=== PATIENT | female | born 1985 | race Caucasian/White ===

== ENCOUNTER 2019-12-27 13:10 | Observation (INO) | payer MEDICARE, MEDICAID, SELFPAY ==
[2019-12-27 14:07] VITALS: BP 93/68; PULSE 97; RESP 14; TEMP 36.7; O2SAT 100; BMI 23.8
[2019-12-27 15:16] LABS: Basophils % 0.2 %; Eosinophils # 0.1 10^3/uL (0.0-0.8); Eosinophils % 0.6 %; Hematocrit 39.6 % (37.0-47.0); Hemoglobin 12.9 g/dL (11.5-15.3); Lymphocytes # 0.6 10^3/uL (0.8-4.8); Lymphocytes % 4.5 %; Mean Corpuscular HGB Conc 32.6 g/dL (30.0-36.0); Mean Corpuscular Hemoglobin 28.6 pg (28.0-34.0); Mean Corpuscular Volume 87.8 fL (81-99); Mean Platelet Volume 9.9 fL (7.4-10.4); Monocytes # 0.7 10^3/uL (0.2-0.9); Monocytes % 5.8 %; Neutrophils # 11.3 10^3/uL (1.8-7.7); Neutrophils % 88.7 %; Nucleated Red Blood Cells % 0 %; Platelet Count 237 10^3/cmm (130-400); Red Blood Count 4.51 10^6/uL (4.1-5.3); Red Cell Distribution Width 12.7 % (12.1-15.1); White Blood Count 12.7 10^3/uL (4.0-10.0)
[2019-12-27 15:25] LABS: Alanine Aminotransferase 12 U/L (0-33); Albumin Level 3.4 g/dL (3.5-5.2); Alkaline Phosphatase 95 IU/L (35-105); Anion Gap 17.4 (5-19); Aspartate Amino Transferase 15 U/L (0-32); Blood Urea Nitrogen 7 mg/dL (6-20); Calcium 8.5 mg/dL (8.5-10.5); Carbon Dioxide 19 mmol/L (22-29); Chloride 99 mmol/L (98-107); Globulin 2.9 g/dL (1.3-4.6); Glomerular Filtration Rate 114.4 mL/min (90-130); Glucose 112 mg/dL (65-115); Lipase 13 U/L (13-60); Osmolality Calculated 271 mOsm/kg (285-295); Potassium 3.4 mmol/L (3.5-5.1); Sodium 132 mmol/L (136-145); Total Bilirubin 0.7 mg/dL (0.15-1.2); Total Protein 6.3 g/dL (6.6-8.7)
[2019-12-27 15:45] LABS: HCG, Serum Qual Negative (Negative)
--- NOTE | 2019-12-27 17:42 | W.ED.ABDPA2 ---
HPI - Abdominal Pain General: Chief Complaint: Abdominal Pain Stated Complaint: ABDOMINAL PAIN Time Seen by Provider: 12/27/19 17:41 History of Present Illness: HPI narrative: Patient is a 34-year-old female comes to the ED with abdominal pain. Patient was seen and [facility] today and was given a shot of Toradol and sent over to the ED via ambulance for an acute abdomen work-up. Patient states that she has had abdominal pain for the past 4 days. She describes it in the lower abdomen particularly the right lower quadrant. She rates the pain an 8 out of 10. She does have some nausea and a decreased appetite but has not had any episodes of emesis. Patient says she is gotten the chills and has felt really hot and cold multiple times over the past couple days. Denies any diarrhea, constipation, blood in the stool, dysuria, hematuria, shortness of breath or chest pain. Denies upper respiratory symptoms such as cough or sore throat. Associated Symptoms: Reports chills, fever(s) and nausea; Denies constipation, diarrhea, dysuria, hematochezia, hematuria and vomiting Review of Systems Const: Reports: fever(s), chills and change in appetite (decreased); Denies: fatigue Eyes: Denies: change in vision or eye discomfort ENMT: Denies: throat pain, odynophagia, nasal discharge or nasal congestion Card: Denies: chest pain, palpitations, edema, swelling of feet/ankles, dyspnea on exertion or orthopnea Resp: Denies: dyspnea, productive cough or non-productive cough GI: Reports: abdominal pain and nausea; Denies: vomiting, diarrhea, constipation or hematochezia : Denies: flank pain, dysuria or hematuria Musc: Denies: neck pain, back pain or extremity swelling Skin/Breast: Denies: rash or new lesions Neuro: Denies: headache(s), numbness in extremities or weakness in extremities PFS ED PFSH: Medical History Glucosuria Social History Smoking and tobacco status: current every day smoker Alcohol intake: never History of recent travel: No Physical Exam Const: COMMON NORMALS: no acute distress, patient oriented x3 and alert GENERAL APPEARANCE: cooperative and comfortable HENMT: COMMON NORMALS: normocephalic HEAD & SCALP: normocephalic MOUTH: Normal oral and palatal mucosa present THROAT: posterior oropharynx normal and uvula midline Eye: COMMON NORMALS: Equal, round and reactive pupils present PUPIL: Yes Equal, round and reactive pupils present Neck/C-Spine: COMMON NORMALS: supple GENERAL: Yes normal visual inspection Resp: COMMON NORMALS: normal respiratory effort, No retractions, No use of accessory muscles and clear to auscultation bilaterally AUSCULTATION: clear to auscultation bilaterally Cardio: COMMON NORMALS: regular rate, regular rhythm, S1 normal heart sound present, S2 normal heart sound present, No gallops present (Cardio), No clicks present (Cardio), No murmurs present (Cardio) and Peripheral pulses 2+ throughout RATE: regular rate RHYTHM: regular rhythm HEART SOUNDS: S1 normal heart sound present and S2 normal heart sound present PERIPHERAL PULSES: Peripheral pulses 2+ throughout GI: COMMON NORMALS: Normal to inspection, nondistended, normoactive bowel sounds present, Soft to palpation and no masses PALPATION: Yes Soft to palpation and Yes Tenderness to palpation present (GI) Details: RLQ (mild tenderness) : COMMON NORMALS: Yes no CVA tenderness BLADDER/KIDNEY EXAM: Yes no CVA tenderness Back/Pelvis: COMMON NORMALS: no CVA tenderness Extremity: COMMON NORMALS: normal to inspection and no pedal edema Neuro: COMMON NORMALS: patient oriented x3 SENSORIUM/ORIENTATION: Yes alert GAIT: Yes Normal gait present Skin: COMMON NORMALS: no rashes or lesions noted GENERAL SKIN EXAM: no rashes or lesions noted and dry skin Course Consultations: Consultation #1: I spoke with Dr. Ortiz the on-call general surgeon about patient's case and the CT findings of appendicitis. Dr. Ortiz wanted patient to be admitted. Vital Signs: Vital signs: Vital Signs Temperature 98.1 F 12/27/19 14:07 Pulse Rate 88 12/27/19 20:00 Respiratory Rate 18 12/27/19 20:23 Blood Pressure 103/75 12/27/19 20:00 Pulse Oximetry 98 12/27/19 20:00 MDM - Abdominal Pain MDM Narrative: Medical decision making narrative: Patient is a 34-year-old female who comes to the ED with right lower quadrant abdominal pain, nausea and decreased appetite. Labs showed a white blood cell count of 12.7. CT of the abdomen pelvis showed low-grade uncomplicated appendicitis. I spoke with Dr. Ortiz the on-call surgeon about patient's case and he wanted patient to be admitted. I spoke with Dr. Briceno about patient and placing admission orders. Patient will be admitted for surgery tomorrow. Patient understood and agree with plan of care. Lab Data: Attestation: I reviewed the patient's lab results. Labs: Lab Results 12/27/19 12/27/19 12/27/19 Range/Units 15:04 15:04 15:04 WBC 12.7 H (4.0-10.0) 10^3/ uL RBC 4.51 (4.1-5.3) 10^6/u L Hgb 12.9 (11.5-15.3) g/dL Hct 39.6 (37.0-47.0) % MCV 87.8 (81-99) fL MCH 28.6 (28.0-34.0) pg MCHC 32.6 (30.0-36.0) g/dL RDW 12.7 (12.1-15.1) % Plt Count 237 (130-400) 10^3/c mm MPV 9.9 (7.4-10.4) fL Neut % (Auto) 88.7 % Lymph % (Auto) 4.5 % [place] % (Auto) 5.8 % Eos % (Auto) 0.6 % Baso % (Auto) 0.2 % Neut # (Auto) 11.3 H (1.8-7.7) 10^3/u L Lymph # (Auto) 0.6 L (0.8-4.8) 10^3/u L [place] # (Auto) 0.7 (0.2-0.9) 10^3/u L Eos # (Auto) 0.1 (0.0-0.8) 10^3/u L Baso # (Auto) 0.0 (0.0-0.1) 10^3/u L Nucleated RBC % (a uto) 0 % Nucleated RBCs # 0.0 /100WBC Sodium 132 L (136-145) mmol/L Potassium 3.4 L (3.5-5.1) mmol/L Chloride 99 (98-107) mmol/L Carbon Dioxide 19 L (22-29) mmol/L Anion Gap 17.4 (5-19) BUN 7 (6-20) mg/dL Creatinine 0.6 (0.5-0.9) mg/dL GFR Calculation 114.4 (90-130) mL/min Glucose 112 (65-115) mg/dL Calculated Osmolal ity 271 L (285-295) mOsm/k g Calcium 8.5 (8.5-10.5) mg/dL Total Bilirubin 0.7 (0.15-1.2) mg/dL AST 15 (0-32) U/L ALT 12 (0-33) U/L Alkaline Phosphata se 95 (35-105) IU/L Total Protein 6.3 L (6.6-8.7) g/dL Albumin 3.4 L (3.5-5.2) g/dL Globulin 2.9 (1.3-4.6) g/dL Lipase 13 (13-60) U/L HCG, Qual Negative (Negative) Urine Color (Yellow) Urine Appearance (CLEAR) Urine pH (5-7) Ur Specific Gravit y (1.005-1.030) Urine Protein (Negative) Urine Glucose (UA) (Normal) Urine Ketones (Negative) Urine Blood (Negative) Urine Nitrate (Negative) Urine Bilirubin (NEGATIVE) Urine Urobilinogen (Negative) mg/dL Ur Leukocyte Lorelei ase (Negative) Urine RBC (0-2) /hpf Urine WBC (0-5) /hpf Ur Squamous Epith Cells (0-5) Urine Bacteria (NONE) 12/27/19 Range/Units 17:52 WBC (4.0-10.0) 10^3/ uL RBC (4.1-5.3) 10^6/u L Hgb (11.5-15.3) g/dL Hct (37.0-47.0) % MCV (81-99) fL MCH (28.0-34.0) pg MCHC (30.0-36.0) g/dL RDW (12.1-15.1) % Plt Count (130-400) 10^3/c mm MPV (7.4-10.4) fL Neut % (Auto) % Lymph % (Auto) % [place] % (Auto) % Eos % (Auto) % Baso % (Auto) % Neut # (Auto) (1.8-7.7) 10^3/u L Lymph # (Auto) (0.8-4.8) 10^3/u L [place] # (Auto) (0.2-0.9) 10^3/u L Eos # (Auto) (0.0-0.8) 10^3/u L Baso # (Auto) (0.0-0.1) 10^3/u L Nucleated RBC % (a uto) % Nucleated RBCs # /100WBC Sodium (136-145) mmol/L Potassium (3.5-5.1) mmol/L Chloride (98-107) mmol/L Carbon Dioxide (22-29) mmol/L Anion Gap (5-19) BUN (6-20) mg/dL Creatinine (0.5-0.9) mg/dL GFR Calculation (90-130) mL/min Glucose (65-115) mg/dL Calculated Osmolal ity (285-295) mOsm/k g Calcium (8.5-10.5) mg/dL Total Bilirubin (0.15-1.2) mg/dL AST (0-32) U/L ALT (0-33) U/L Alkaline Phosphata se (35-105) IU/L Total Protein (6.6-8.7) g/dL Albumin (3.5-5.2) g/dL Globulin (1.3-4.6) g/dL Lipase (13-60) U/L HCG, Qual (Negative) Urine Color Yellow (Yellow) Urine Appearance Sl cloudy A (CLEAR) Urine pH 5 (5-7) Ur Specific Gravit y 1.020 (1.005-1.030) Urine Protein Neg (Negative) Urine Glucose (UA) Norm (Normal) Urine Ketones Negative (Negative) Urine Blood 3+ H (Negative) Urine Nitrate Negative (Negative) Urine Bilirubin 1+ H (NEGATIVE) Urine Urobilinogen 8 H (Negative) mg/dL Ur Leukocyte Lorelei ase Negative (Negative) Urine RBC 0-4 H (0-2) /hpf Urine WBC 0-4 H (0-5) /hpf Ur Squamous Epith Cells 25-40 H (0-5) Urine Bacteria 1+ H (NONE) Imaging Data ^: CT Abd/Pel: Attestation: I personally reviewed and interpreted this imaging study as follows: Radiologist's impression: [address] [place] [address] CT Scan Report Signed Patient: Qing Helm Unit #: [id number] : [id number] Age/Sex: 34 / F ADM Date: 12/27/19 Loc: ER Room/Bed: Attending Dr: Ordering Provider/Ordering MD: Roger Matthews Date of Service: 12/27/19 Procedure(s): CT abdomen pelvis w con* [id number] Accession Number(s): [id number] Report Number: [id number] PROCEDURE INFORMATION: Exam: CT Abdomen And Pelvis With Contrast Exam date and time: 12/27/2019 7:39 PM Age: 34 years old Clinical indication: Abdominal pain; Generalized; Patient HX: C/O abd pain and nausea; Additional info: Abdominal pain, nausea TECHNIQUE: Imaging protocol: Computed tomography of the abdomen and pelvis with intravenous contrast. Radiation optimization: All CT scans at this facility use at least one of these dose optimization techniques: automated exposure control; mA and/or kV adjustment per patient size (includes targeted exams where dose is matched to clinical indication); or iterative reconstruction. Contrast material: OMNI 300; Contrast volume: 95 ml; Contrast route: 20G; COMPARISON: No relevant prior studies available. RADIATION DOSE METRICS: Total DLP: 508.72 mGy-cm FINDINGS: Liver: Unremarkable. No mass. Gallbladder and bile ducts: Normal. No calcified stones. No ductal dilation. Pancreas: Normal. No ductal dilation. Spleen: Normal. No splenomegaly. Adrenals: Normal. No mass. Kidneys and ureters: Normal. No hydronephrosis. Stomach and bowel: Nonobstructive bowel pattern. Mild associated small bowel reactive ileus. Appendix: Findings suggest the presence of low-grade acute uncomplicated appendicitis. No periappendiceal abscess or extraluminal gas. Intraperitoneal space: Unremarkable. No free air. No significant fluid collection. Vasculature: The abdominal aorta is nonaneurysmal. Minimal arterial sclerotic disease. Lymph nodes: Unremarkable. No enlarged lymph nodes. Bladder: Unremarkable as visualized. Reproductive: Unremarkable as visualized. Bones/joints: No visible active osseous pathology. Soft tissues: Unremarkable. CT/CT abdomen pelvis w con* [id number] IMPRESSION: Findings consistent with low-grade uncomplicated appendicitis. 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
[2019-12-27] MEDS: sodium chloride 0.9% 1,000 ML 999 ML IV (18:02)
[2019-12-27] MEDS: ondansetron 2 mg/ML SDV 2 mL 4 MG IVP (18:02)
[2019-12-27 18:04] VITALS: BP 108/63; PULSE 98; O2SAT 99
[2019-12-27 18:55] LABS: Add Urine Microscopic? YES; Bilirubin Urine 1+ (NEGATIVE); Blood Urine 3+ (Negative); Glucose Urine UA Norm (Normal); Ketones Urine Negative (Negative); Leukocyte Esterase Urine Negative (Negative); Nitrate Urine Negative (Negative); Protein Urine Neg (Negative); Urine Color Yellow (Yellow); Urobilinogen Urine 8 mg/dL (Negative); pH Urine 5 (5-7)
[2019-12-27 18:56] LABS: Bacteria Urine 1+; RBC Urine 0-4 /hpf (0-2); Squamous Epithelial Cell Urine 25-40 (0-5); WBC Urine 0-4 /hpf (0-5)
[2019-12-27 18:57] LABS: Add Urine Culture? No
[2019-12-27] MEDS: iohexol 300 mg/mL 100 mL Btl IV (19:45)
[2019-12-27 20:00] VITALS: BP 103/75; PULSE 88; RESP 16; O2SAT 98
[2019-12-27 20:23] VITALS: RESP 18
[2019-12-27] MEDS: morphine 4 mg/mL SDV 1 mL IVP (20:23)
[2019-12-27 20:54] VITALS: BP 94/58; PULSE 80; RESP 18; TEMP 37.2; O2SAT 98
[2019-12-27] MEDS: acetaminophen 500 mg Tablet PO (21:31)
[2019-12-27] MEDS: piperacillin-tazobactam 3.375 GM in sodium chloride 0.9% (plus) 50 ML IV (21:32)
--- NOTE | 2019-12-27 21:46 | PC.NURSE ---
Called report to Radha
[2019-12-27 22:17] VITALS: BP 101/57; PULSE 87; RESP 16; O2SAT 98
[2019-12-27] MEDS: sodium chloride 0.9% 1,000 ML 100 ML IV (22:43)
[2019-12-28] VITALS (16 sets, daily range): BP systolic 91–133; BP diastolic 53–85; PULSE 73–113; RESP 12–20; TEMP 36.9–37.4; O2SAT 95–99
[2019-12-28 02:53] LABS: Basophils % 0.3 %; Eosinophils # 0.1 10^3/uL (0.0-0.8); Eosinophils % 1.5 %; Hematocrit 36.2 % (37.0-47.0); Hemoglobin 11.5 g/dL (11.5-15.3); Lymphocytes # 0.8 10^3/uL (0.8-4.8); Mean Corpuscular HGB Conc 31.8 g/dL (30.0-36.0); Mean Corpuscular Hemoglobin 28.6 pg (28.0-34.0); Mean Platelet Volume 10.7 fL (7.4-10.4); Monocytes # 0.8 10^3/uL (0.2-0.9); Monocytes % 10.6 %; Neutrophils # 6.1 10^3/uL (1.8-7.7); Neutrophils % 77.2 %; Nucleated Red Blood Cells % 0 %; Platelet Count 189 10^3/cmm (130-400); Red Blood Count 4.02 10^6/uL (4.1-5.3); Red Cell Distribution Width 12.9 % (12.1-15.1); White Blood Count 7.9 10^3/uL (4.0-10.0)
[2019-12-28 03:02] LABS: Anion Gap 15.4 (5-19); Blood Urea Nitrogen 7 mg/dL (6-20); Calcium 8.2 mg/dL (8.5-10.5); Carbon Dioxide 22 mmol/L (22-29); Chloride 106 mmol/L (98-107); Glomerular Filtration Rate 114.4 mL/min (90-130); Glucose 77 mg/dL (65-115); Osmolality Calculated 285 mOsm/kg (285-295); Potassium 3.4 mmol/L (3.5-5.1); Sodium 140 mmol/L (136-145)
[2019-12-28] MEDS: morphine 4 mg/mL SDV 1 mL IVP (04:54)
--- NOTE | 2019-12-28 06:32 | PC.NURSE ---
Pt. off floor at this time to OR.
--- NOTE | 2019-12-28 06:53 | P.HP_ITS ---
Providers/Chief Complaint Admitting Physician: Nicola Ortiz MD Chief Complaint: ABDOMINAL PAIN History of Present Illness Qing Helm is a 34 year old female who presented to the ER last night with worsening lower abdominal pain. Patient states that the pain said about 5 days ago has been constant, no associated aggravating or relieving factors. Patient denies any fevers chills nausea vomiting constipation or diarrhea. No similar episodes in the past. No history of inflammatory bowel disease. Review of Systems General: Reports: 10 or more systems reviewed and unremarkable except in HPI and below Medications/Allergies Home Medications Medication Instructions Recorded Confirmed Last Taken Type ibuprofen 800 mg PO PRN 12/27/19 12/27/19 12/27/19 History Allergies Allergy/AdvReac Type Severity Reaction Status Date / Time No Known Allergies Allergy Verified 12/27/19 11:24 PFSH Acute PFSH: Medical History Glucosuria Surgical History (Updated 12/28/19 @ 07:00 by Nicola Ortiz MD) No pertinent past surgical history Social History Smoking and tobacco status: current every day smoker Alcohol intake: never History of recent travel: No Vitals/I&O/Wt Last Vital Signs Temp 98.5 F 12/28/19 06:45 Pulse 79 12/28/19 06:45 Resp 16 12/28/19 06:45 BP 102/69 12/28/19 06:45 Pulse Ox 97 12/28/19 06:45 12/27/19 12/27/19 12/28/19 14:59 22:59 06:59 Output Total 200 / 200 Balance -200 / -200 Weight last 48 hrs Weight 126 lb Physical Exam Narrative: EXAM NARRATIVE: HEENT: Normocephalic Eye: Sclera /conjunctiva normal Respiratory and chest: Bilateral clear breath sounds on auscultation Cardiovascular: Normal S1 and S2 heart sounds Abdomen: Soft to palpation, tender right lower quadrant, no guarding or rigidity Neurological: Oriented to place person and time Skin: Intact, no lesions appreciated on gross exam Data : 12/28/19 02:24 12/28/19 02:24 A&P Assessment and plan (1) Acute appendicitis: 34-year-old female with right lower quadrant pain leukocytosis and CT scan showing early appendicitis. Plan for laparoscopic possible open appendectomy. Procedure, risks, benefits and alternatives have been discussed with the patient who wishes to proceed with surgery. 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
--- NOTE | 2019-12-28 07:06 | ANES.PREANE2 ---
Pre-Anesthetic Assessment Pre-Anesthetic Assessment: Height/Weight: Height 1.55 m Weight 57.153 kg Temp Pulse Resp BP Pulse Ox 98.5 F 79 16 102/69 97 12/28/19 06:45 12/28/19 06:45 12/28/19 06:45 12/28/19 06:45 12/28/19 06:45 Preop Diagnosis: Acute appendicitis Proposed Procedure: Operation Date: 12/28/19 07:20 Proposed Procedures p Laparoscopic Appendectomy(Not Applicable) - Nicola Ortiz MD Was Beta Angelic taken within 24 hours: N/A Last intake: Intake Last Liquid Date 12/27/19 Last Liquid Time 19:00 Last Solid Date 12/26/19 Last Solid Time 17:00 Social: Social History: No alcohol and No tobacco Exam: Pre-Anes Outpt Exam: alert, oriented x 3, clear to auscultation bilaterally and regular rate & rhythm Airway: Submandibular: WNL Cervical ROM: WNL MP: 2 Dentition: Other Additional comments: Profound dental disease throughout with terminal decay and periodontal disease History/ROS: No significant history except as noted Pulmonary: Pulmonary: None reported CV/HEM: CV/HEM: None reported Hepatic: Hepatic: None reported GI: GI: None reported Metabolic: Metabolic: None reported Musc/skel: Musc/skel: None reported Neuropsych: Neuropsych: None reported Anesthetic Plan: ASA status: 1E Anesthesia: General Meds/Allergies Current Medications: Current Medications Generic Name Dose Route Start Last Admin Trade Name Freq PRN Reason Stop Dose Admin Sodium Chloride 1,000 mls @ 100 m ls/hr 12/27/19 21:00 12/27/19 22:43 Sodium Chloride 0.9% IV 100 mls/hr .Q10H JULIO Administration Morphine Sulfate 4 mg 12/27/19 20:54 12/28/19 04:54 Morphine IVP 4 mg Q4H PRN Administration SEVERE PAIN PFSH Anesthesia PFSH: Medical History (Updated 12/28/19 @ 07:00 by Nicola Ortiz MD) Glucosuria Surgical History (Updated 12/28/19 @ 07:00 by Nicola Ortiz MD) No pertinent past surgical history Social History Smoking and tobacco status: current every day smoker Alcohol intake: never History of recent travel: No Data Anesthesia CBC & Chem 7: 12/28/19 02:24 12/28/19 02:24 Other Labs: Laboratory Results - last 48 hr 12/27/19 12/27/19 12/27/19 15:04 15:04 15:04 WBC 12.7 H RBC 4.51 Hgb 12.9 Hct 39.6 MCV 87.8 MCH 28.6 MCHC 32.6 RDW 12.7 Plt Count 237 MPV 9.9 Neut % (Auto) 88.7 Lymph % (Auto) 4.5 [place] % (Auto) 5.8 Eos % (Auto) 0.6 Baso % (Auto) 0.2 Neut # (Auto) 11.3 H Lymph # (Auto) 0.6 L [place] # (Auto) 0.7 Eos # (Auto) 0.1 Baso # (Auto) 0.0 Nucleated RBC % (auto) 0 Nucleated RBCs # 0.0 Sodium 132 L Potassium 3.4 L Chloride 99 Carbon Dioxide 19 L Anion Gap 17.4 BUN 7 Creatinine 0.6 GFR Calculation 114.4 Glucose 112 Calculated Osmolality 271 L Calcium 8.5 Total Bilirubin 0.7 AST 15 ALT 12 Alkaline Phosphatase 95 Total Protein 6.3 L Albumin 3.4 L Globulin 2.9 Lipase 13 HCG, Qual Negative Urine Color Urine Appearance Urine pH Ur Specific [place] Urine Protein Urine Glucose (UA) Urine Ketones Urine Blood Urine Nitrate Urine Bilirubin Urine Urobilinogen Ur Leukocyte Esterase Urine RBC Urine WBC Ur Squamous Epith Cells Urine Bacteria 12/27/19 12/28/19 12/28/19 17:52 02:24 02:24 WBC 7.9 RBC 4.02 L Hgb 11.5 Hct 36.2 L MCV 90.0 MCH 28.6 MCHC 31.8 RDW 12.9 Plt Count 189 MPV 10.7 H Neut % (Auto) 77.2 Lymph % (Auto) 10.0 [place] % (Auto) 10.6 Eos % (Auto) 1.5 Baso % (Auto) 0.3 Neut # (Auto) 6.1 Lymph # (Auto) 0.8 [place] # (Auto) 0.8 Eos # (Auto) 0.1 Baso # (Auto) 0.0 Nucleated RBC % (auto) 0 Nucleated RBCs # 0.0 Sodium 140 Potassium 3.4 L Chloride 106 Carbon Dioxide 22 Anion Gap 15.4 BUN 7 Creatinine 0.6 GFR Calculation 114.4 Glucose 77 Calculated Osmolality 285 Calcium 8.2 L Total Bilirubin AST ALT Alkaline Phosphatase Total Protein Albumin Globulin Lipase HCG, Qual Urine Color Yellow Urine Appearance Sl cloudy A Urine pH 5 Ur Specific [place] 1.020 Urine Protein Neg Urine Glucose (UA) Norm Urine Ketones Negative Urine Blood 3+ H Urine Nitrate Negative Urine Bilirubin 1+ H Urine Urobilinogen 8 H Ur Leukocyte Esterase Negative Urine RBC 0-4 H Urine WBC 0-4 H Ur Squamous Epith Cells 25-40 H Urine Bacteria 1+ H Cardiac Studies: No Data to Display
[2019-12-28] MEDS: sodium chloride 0.9% 1,000 ML 30 ML IV (07:10)
[2019-12-28] MEDS: piperacillin-tazobactam 3.375 GM in sodium chloride 0.9% (plus) 50 ML IV (07:14)
--- NOTE | 2019-12-28 09:00 | PM.OP ---
Operative Report Date of procedure: December 28, 2019 Pre-op Diagnosis: Acute appendicitis Post-op diagnosis: same Procedure Done: Laparoscopic appendectomy Specimens removed/disposition: Appendix Surgeon: Nicola Ortiz Anesthesia: General Estimated blood loss (mL): 10 Condition: stable Disposition: PACU Procedure: The patient was taken to the Operating Room and intubated under general anesthesia after antibiotic had been administered. Using a 15 blade, a 1-cm infraumbilical incision was made and using open Klarissa technique, the peritoneal cavity was entered. A 12mm port with balloon was placed and 14 mm of pneumoperitoneum was created and 10-mm 30 degree scope was introduced. Two separate 5mm ports were placed in the left and right lower quadrant under direct visualization. The appendix was noted in the right lower quadrant and appeared acutely inflamed with suppuration.. Using [place] forceps, an opening was made in the mesoappendix near the base of the appendix. An Endo JAM stapler 45mm long 3.5mm blue load was introduced to divide the appendix at it's base. Using electrocautery, the mesoappendix including the appendicular artery was divided. There was no bleeding noted and the staple line appeared intact. The right lower quadrant was irrigated with saline and an EndoCatch bag was introduced to remove the appendix. All three ports were removed under direct visualization and there was no bleeding noted on the port sites. 10 cc of 0.5% Marcaine was infiltrated at the port sites. The fascia at the umbilical port was closed using figure of eight 0-Vicryl sutures and subcutaneous tissue was approximated using 3-0 Vicryl and skin at all 3 port sites was closed using 4-0 Monocryl and Dermabond.
--- NOTE | 2019-12-28 09:02 | PM.DCS ---
Discharge Providers Date of Admission: 12/27/19 20:56 Date of Discharge: December 28, 2019 Attending Provider at Admission: Nicola Ortiz MD Attending Provider at Discharge: Nicola Ortiz MD Diagnoses at Discharge Discharge Diagnosis (1) Acute appendicitis: Status: Resolved Reason for Visit Reason for Visit: ABDOMINAL PAIN Hospital Course Hospital Course: This is a 34-year-old female who presented to the ER with lower abdominal pain, CT scan showed acute appendicitis. Patient underwent laparoscopic appendectomy. At time of discharge her vital signs are stable and she was tolerating a clear liquid diet. Discharge Data Data Completed and Pending: Completed Studies During Hospitalization Category Date Time Status CT abdomen pelvis w con* [id number] Urge nt Cat Scan 12/27/19 17:41 Completed Pending at discharge Category Date Time Status Pathology: Surgic al [PTH] Routine Pth 12/28/19 07:47 Ordered Labs from last 24 hours 12/28/19 12/28/19 12/27/19 02:24 02:24 17:52 WBC 7.9 RBC 4.02 L Hgb 11.5 Hct 36.2 L MCV 90.0 MCH 28.6 MCHC 31.8 RDW 12.9 Plt Count 189 MPV 10.7 H Neut % (Auto) 77.2 Lymph % (Auto) 10.0 [place] % (Auto) 10.6 Eos % (Auto) 1.5 Baso % (Auto) 0.3 Neut # (Auto) 6.1 Lymph # (Auto) 0.8 [place] # (Auto) 0.8 Eos # (Auto) 0.1 Baso # (Auto) 0.0 Nucleated RBC % (a uto) 0 Nucleated RBCs # 0.0 Sodium 140 Potassium 3.4 L Chloride 106 Carbon Dioxide 22 Anion Gap 15.4 BUN 7 Creatinine 0.6 GFR Calculation 114.4 Glucose 77 Calculated Osmolal ity 285 Calcium 8.2 L Total Bilirubin AST ALT Alkaline Phosphata se Total Protein Albumin Globulin Lipase HCG, Qual Urine Color Yellow Urine Appearance Sl cloudy A Urine pH 5 Ur Specific Gravit y 1.020 Urine Protein Neg Urine Glucose (UA) Norm Urine Ketones Negative Urine Blood 3+ H Urine Nitrate Negative Urine Bilirubin 1+ H Urine Urobilinogen 8 H Ur Leukocyte Lorelei ase Negative Urine RBC 0-4 H Urine WBC 0-4 H Ur Squamous Epith Cells 25-40 H Urine Bacteria 1+ H 12/27/19 12/27/1912/26/20 15:04 15:04 15:04 WBC 12.7 H RBC 4.51 Hgb 12.9 Hct 39.6 MCV 87.8 MCH 28.6 MCHC 32.6 RDW 12.7 Plt Count 237 MPV 9.9 Neut % (Auto) 88.7 Lymph % (Auto) 4.5 [place] % (Auto) 5.8 Eos % (Auto) 0.6 Baso % (Auto) 0.2 Neut # (Auto) 11.3 H Lymph # (Auto) 0.6 L [place] # (Auto) 0.7 Eos # (Auto) 0.1 Baso # (Auto) 0.0 Nucleated RBC % (a uto) 0 Nucleated RBCs # 0.0 Sodium 132 L Potassium 3.4 L Chloride 99 Carbon Dioxide 19 L Anion Gap 17.4 BUN 7 Creatinine 0.6 GFR Calculation 114.4 Glucose 112 Calculated Osmolal ity 271 L Calcium 8.5 Total Bilirubin 0.7 AST 15 ALT 12 Alkaline Phosphata se 95 Total Protein 6.3 L Albumin 3.4 L Globulin 2.9 Lipase 13 HCG, Qual Negative Urine Color Urine Appearance Urine pH Ur Specific Gravit y Urine Protein Urine Glucose (UA) Urine Ketones Urine Blood Urine Nitrate Urine Bilirubin Urine Urobilinogen Ur Leukocyte Lorelei ase Urine RBC Urine WBC Ur Squamous Epith Cells Urine Bacteria Vitals: Last Vital Signs Temp 98.8 F 12/28/19 08:25 Pulse 92 12/28/19 08:25 Resp 16 12/28/19 08:25 BP 127/65 12/28/19 08:25 Pulse Ox 96 12/28/19 08:25 Discharge Plan Discharge Patient Disposition: Home, Self-Care Condition: Stable Prescriptions: [place] 5-325 mg tablet 1 tab PO Q6H 7 Days Qty: 20 RF: 0 docusate sodium [Colace] 100 mg capsule 100 mg PO BID Qty: 30 RF: 0 ondansetron HCl [Zofran] 4 mg tablet 4 mg PO Q6H PRN (Reason: nausea and vomiting) Qty: 20 RF: 0 Continued ibuprofen 200 mg Tablet 800 mg PO PRN RF: 0 Discharge Orders: Discharge Order (Routine); Ordered 12/28/19 Ordered By: Nicola Ortiz Referrals: Nicola Ortiz MD [Physician] - 2 weeks Discharge Diet: Advance as tolerated Activity Restrictions/Additional Instructions: 1. Up and walking as tolerated. 2. Ok to shower in 48 hours after surgery. 3. Remove Dermabond dressing in 7-10 days. 4. Do not lift more than 10 pounds. 5. Do not operate heavy machinery or drive while using pain medications. 6. Advised to return to ER or contact my office if there are any signs of infection like, increasing pain, fevers, chills, redness or drainage of pus. 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
--- NOTE | 2019-12-28 09:45 | PC.CHAP ---
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 [] Patient/Family/Request visit [] Outpatient visit [] Follow-up visit [] Physician referral [] Code/Alert [x] Routine visit [] Staff referral [] Actively dying [] Patient sleeping [] Family support [] [] Out of room [] Palliative care [] [] Receiving care in room [] Pre-surgical visit [] Trauma [] Long length of stay [] ICU visit [] Other: Relational/Emotional Strength [] Patient feels connected with others/family/visitors/staff [] Distress [] Loneliness/isolation [] Abandonment Spirituality of Patient [] Person of Valerie [] Attends Baptism of their Valerie [] Believes in Prayer [] Reads Bible or Judaism materials [] There are Spiritual issues to be addressed Salesperson Handbags Interventions [x] Prayer [] Active listening [] Non-anxious presence [] Spiritual/emotional support [] Crisis/trauma care [] Spiritual counseling [] Bereavement support [] Provided bereavement packet [] Provided Bible/devotional materials [] Provided toy/stuffed animal, coloring book to patient or family member [] Provided Communion [] Anointing/[place] [] Salvation [x] Completed spiritual assessment [] Other: Impact on Illness or Injury [] Angry [] Fearful [] Anxious [] Often cries [] Exhaustion [] Unable to work [] Unable to attend bahai [] Unable to walk/stand [] Unable to read [] Unable to drive [] Unable to eat/drink [] Unable to sleep [] Unable to be with family [] Patient intubated [] Other: Summary Patient resting well. Time spent with patient 5 min
[2019-12-28] MEDS: lactated ringers 1,000 ML 100 ML IV (09:52)
[2019-12-28] MEDS: HYDROcodone-acetaminophen 5-325 mg Tablet 1 TAB PO (10:53)
--- NOTE | 2019-12-28 11:51 | PC.RESP ---
Smoking Cessation information and a schedule of classes sent to patient.
== END 2019-12-28 14:43 | disposition home or self-care (01) ==
LOC: ER 17:41 → MEDSURG 21:32
PROVIDERS: Family Medicine; Physician Assistant; Admitting Provider Surgery; Emergency Provider Physician Assistant; Visit Provider Surgery
PROC: 0DTJ4ZZ Resection of Appendix, Percutaneous Endoscopic Approach (ICD-10-PCS; CPT 44970; principal; 2019-12-28 07:00)
DX: K35.80 Unspecified acute appendicitis (principal); F17.210 Nicotine dependence, cigarettes, uncomplicated
CPT/HCPCS: 44970; 12345; 36415; 74177; 80048; 80053; 81000; 81001; 81025; 83690; 84703; 85025; 88304; 96365; 96375; 96376; 99282; 99285; G0378; J2270; J2405; J2543; J2704; J3010; J3490; J7030; Q9967

== ENCOUNTER 2022-09-27 11:02 | Emergency (ER) | payer MEDICARE, MEDICAID, SELFPAY ==
[2022-09-27 11:04] VITALS: BP 105/75; PULSE 75; RESP 14; TEMP 36.6; O2SAT 100
--- NOTE | 2022-09-27 11:30 | XR_ITS ---
WS: [id number] XR chest 1V portable [id number] REASON FOR EXAM: cough FINDINGS: The heart and the mediastinum are within normal limits. There is calcified granulomatous disease bilaterally. There is no active pulmonary parenchymal or pleural disease. The bony thorax is unremarkable. The chest is unchanged compared to 01/14/2019. XR/XR chest 1V portable [id number] IMPRESSION: No acute chest abnormality.
--- NOTE | 2022-09-27 11:43 | W.ED.URI ---
HPI - URI/Sore Throat General: Chief Complaint: Upper Respiratory Infection Stated Complaint: cough,congestion, body aches Time Seen by Provider: 09/27/22 11:30 History of Present Illness: Patient is a 36-year-old female who comes to the ED with upper respiratory symptoms. She is complaining of having headache, nasal congestion and drainage, sore throat, fevers, cough chills and body aches. Symptoms started approximately 2 days ago. Associated symptoms: Reports chills, fever(s) and nasal congestion; Deny abdominal pain, chest pain, diarrhea, headache(s), nausea or vomiting Review of Systems Const: Reports: fever(s), chills, body aches and fatigue Eyes: Denies: change in vision or eye discomfort ENMT: Reports: throat pain, nasal discharge and nasal congestion; Denies: odynophagia Card: Denies: chest pain, palpitations, edema, swelling of feet/ankles, dyspnea on exertion or orthopnea Resp: Reports: non-productive cough; Denies: dyspnea or productive cough GI: Denies: abdominal pain, nausea, vomiting, diarrhea, constipation or hematochezia : Denies: flank pain, dysuria or hematuria Musc: Denies: neck pain, back pain or extremity swelling Skin/Breast: Denies: rash or new lesions Neuro: Denies: headache(s), numbness in extremities or weakness in extremities PFS ED PFSH: Medical History Glucosuria Surgical History No pertinent past surgical history Social History Smoking and tobacco status: never smoked Alcohol intake: never Female Reproductive History: Spontaneous abortions: No Physical Exam Const: COMMON NORMALS: no acute distress, patient oriented x3, healthy appearing and alert GENERAL APPEARANCE: cooperative and comfortable HENMT: COMMON NORMALS: normocephalic HEAD & SCALP: normocephalic MOUTH: Normal oral and palatal mucosa present THROAT: posterior oropharynx normal and uvula midline Neck/C-Spine: COMMON NORMALS: supple GENERAL: Yes normal visual inspection Resp: COMMON NORMALS: normal respiratory effort, No retractions, No use of accessory muscles and clear to auscultation bilaterally AUSCULTATION: clear to auscultation bilaterally Cardio: COMMON NORMALS: regular rate, regular rhythm, S1 normal heart sound present, S2 normal heart sound present, No gallops present (Cardio), No clicks present (Cardio), No murmurs present (Cardio) and Peripheral pulses 2+ throughout RATE: regular rate RHYTHM: regular rhythm HEART SOUNDS: S1 normal heart sound present and S2 normal heart sound present PERIPHERAL PULSES: Peripheral pulses 2+ throughout GI: COMMON NORMALS: Normal to inspection, nondistended, normoactive bowel sounds present, Soft to palpation, non-tender and no masses PALPATION: Yes Soft to palpation : COMMON NORMALS: Yes no CVA tenderness BLADDER/KIDNEY EXAM: Yes no CVA tenderness Back/Pelvis: COMMON NORMALS: no CVA tenderness Extremity: COMMON NORMALS: normal to inspection Neuro: COMMON NORMALS: patient oriented x3 SENSORIUM/ORIENTATION: Yes alert GAIT: Yes Normal gait present Skin: GENERAL SKIN EXAM: dry skin Course Vital Signs: Vital signs: Vital Signs Temperature 97.8 F 09/27/22 11:04 Pulse Rate 79 09/27/22 12:47 Respiratory Rate 14 09/27/22 12:47 Blood Pressure 105/75 09/27/22 11:04 Pulse Oximetry 100 09/27/22 12:47 Oxygen Delivery Me thod 09/27/22 11:04 MDM - URI/Sore Throat Medical Decision Making Patient is a 36-year-old female who comes to the ED with upper respiratory symptoms. She is complaining of having headache, nasal congestion and drainage, sore throat, fevers, cough chills and body aches. Symptoms started approximately 2 days ago. Vital stable. Patient appears nontoxic and in no acute distress or pain. Rest of exam is benign. Chest x-ray shows no acute findings. Influenza, COVID and strep were all negative. Patient was diagnosed with a viral URI with a cough and was stable for discharge home. She was told to follow-up with her PCP in the next week for reevaluation. Return to ED precautions given. Patient understood and agreed with plan. Lab Data I reviewed the patient's lab results. Radiology Impressions Chest X-Ray 09/27/22 11:30 IMPRESSION: No acute chest abnormality. Laboratory Results Influenza Type A Ag Negative (Negative) 09/27/22 11:40 Influenza Type B Ag Negative (Negative) 09/27/22 11:40 SARS-CoV-2 Ag (Rapid) negative (Negative) 09/27/22 11:40 Group A Strep Rapid Negative (Negative) 09/27/22 11:45 Discharge Plan Discharge Patient Disposition: Home Clinical Impression: Viral URI with cough Condition: Stable Prescriptions: New ondansetron 4 mg tablet,disintegrating 4 mg PO Q8H PRN (Reason: nausea and vomiting) Qty: 20 0RF prednisone 20 mg tablet 20 mg PO BID 3 Days Qty: 6 0RF No Action albuterol sulfate 90 mcg/actuation HFA aerosol inhaler 2 puff inhalation QID Qty: 8.5 0RF Rx Instructions: 2 puffs inhaled every 4-6 hours as needed benzonatate 100 mg capsule 100 mg PO TID PRN (Reason: cough) Qty: 15 0RF Discharge Orders: Discharge ED (Routine); Ordered 09/27/22 Ordered By: Roger Matthews Discharge Diet: Regular Discharge Activity: Increase activity as tolerated Patient Instructions: Upper Respiratory Infection (ED) Activity Restrictions/Additional Instructions: Follow-up with medical provider as directed in the next 5 to 7 days for reevaluation. Take [id number] Tylenol or ibuprofen for any fevers. Drink plenty of fluids and stay hydrated. Take medications as prescribed. Return to the ER or your medical provider if condition worsens. Please read and understand discharge instructions. Thank you for choosing [facility] for your healthcare needs today. Please realize this is an emergency room and that we are providing you with a medical screening exam and this may not be complete and all inclusive of all the testing and or work up that you may need to determine your ailment or severity of your illness. It is very important that you follow up as instructed or that you return to the Emergency Department should you have concerns or if your condition changes or worsens in any way. Coding Level of Care Code ED Manager Massage Department for Albert Pelletier
[2022-09-27 12:03] LABS: Rapid Strep A Test Negative (Negative)
[2022-09-27 12:09] LABS: SARS Covid-2 Antigen negative (Negative)
[2022-09-27 12:28] LABS: Influenza A by IFA Negative (Negative); Influenza B by IFA Negative (Negative)
[2022-09-27] MEDS: acetaminophen 500 mg Tablet 1000 MG PO (12:42)
[2022-09-27] MEDS: ondansetron 2 mg/ML SDV 2 mL 4 MG IM (12:42)
[2022-09-27 12:47] VITALS: PULSE 79; RESP 14; O2SAT 100
--- NOTE | 2022-09-28 16:43 | DCPLANNER ---
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
== END 2022-09-27 12:47 | disposition home or self-care (01) ==
PROVIDERS: Emergency Provider Physician Assistant
DX: J06.9 Acute upper respiratory infection, unspecified (principal)
CPT/HCPCS: 71045; 87081; 87426; 87804; 87880; 96372; 99284; J2405

== ENCOUNTER 2022-10-06 09:35 | Inpatient (IN) | payer MEDICARE, MEDICAID, SELFPAY ==
[2022-10-06 09:42] VITALS: BP 163/111; PULSE 84; RESP 16; TEMP 36.4; O2SAT 97; BMI 27.3
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
[2022-10-06 10:24] LABS: Alanine Aminotransferase 16 U/L (0-33); Albumin Level 3.7 g/dL (3.5-5.2); Alkaline Phosphatase 84 U/L (35-105); Aspartate Amino Transferase 13 U/L (0-32); Blood Urea Nitrogen 16 mg/dL (6-20); Calcium 8.5 mg/dL (8.5-10.5); Carbon Dioxide 20 mmol/L (22-29); Chloride 107 mmol/L (98-107); Globulin 2.7 g/dL (1.3-4.6); Glomerular Filtration Rate 94.7 mL/min (90-130); Glucose 65 mg/dL (65-115); Osmolality Calculated 285 mOsm/kg (285-295); Sodium 138 mmol/L (136-145); Total Bilirubin 0.2 mg/dL (0.15-1.2); Total Protein 6.4 g/dL (6.6-8.7)
[2022-10-06 10:26] LABS: Acetaminophen < 5.0 ug/mL (10-30); Anion Gap 14.9 (5-19); Potassium 3.9 mmol/L (3.5-5.1); Salicylate < 0.3 mg/dL (3-10)
[2022-10-06 10:29] LABS: Basophils # 0.1 10^3/uL (0.0-0.1); Basophils % 0.2 %; Eosinophils # 0.2 10^3/uL (0.0-0.8); Eosinophils % 1.1 %; Hematocrit 42.9 % (37.0-47.0); Hemoglobin 13.5 g/dL (11.5-15.3); Lymphocytes # 4.5 10^3/uL (0.8-4.8); Lymphocytes % 22.4 %; Mean Corpuscular HGB Conc 31.5 g/dL (30.0-36.0); Mean Corpuscular Hemoglobin 28.5 pg (28.0-34.0); Mean Corpuscular Volume 90.5 fl (81-99); Mean Platelet Volume 9.1 fL (7.4-10.4); Monocytes # 2.4 10^3/uL (0.2-0.9); Monocytes % 11.8 %; Neutrophils % 58.9 %; Nucleated Red Blood Cells % 0 %; Platelet Count 505 10^3/cmm (130-400); Red Blood Count 4.74 10^6/uL (4.1-5.3); Red Cell Distribution Width 13.3 % (12.1-15.1)
[2022-10-06 10:30] LABS: Slide Review Slide Review Perform
--- NOTE | 2022-10-06 10:30 | PC.PHAR ---
pt is from [facility] [phone] katy nurse at [facility] states the pt finished the zpac filled 09/30/22 5d/s and medrol dose [place] filled 09/30/22 7d/s this am-pts med list sent by [facility] has the pt takes mirtazapine 30mg hs filled 09/23/22 30d/s per katy states the pt takes mirtazapine 45mg hs filled 09/29/22 30d/s-notes are made in the pharmacy comments
[2022-10-06 10:44] LABS: Add Urine Microscopic? NO; Charge for UA Resulting for Rev
[2022-10-06 10:57] LABS: Bilirubin Urine Neg (Negative); Blood Urine Neg (Negative); Glucose Urine UA Norm (Normal); Ketones Urine Negative (Negative); Leukocyte Esterase Urine Negative (Negative); Nitrate Urine Negative (Negative); Protein Urine Neg (Negative); Urine Appearance Clear (CLEAR); Urine Color Yellow (Yellow); Urobilinogen Urine Neg (Negative); pH Urine 6 (5-7)
--- NOTE | 2022-10-06 11:18 | XRR_ITS ---
PROCEDURE INFORMATION: Exam: XR Chest Exam date and time: 10/06/2022 11:33 AM Age: 36 years old Clinical indication: Cough and dyspnea; Additional info: Dyspnea/cough TECHNIQUE: Imaging protocol: Radiologic exam of the chest. Views: 1 view. COMPARISON: CR XR chest 1V [id number] 01/14/2019 8:58 AM FINDINGS: Lungs: Unremarkable. No consolidation. Pleural spaces: Unremarkable. No pleural effusion. No pneumothorax. Heart/Mediastinum: Unremarkable. No cardiomegaly. Bones/joints: Unremarkable. XR/XR chest 1V portable [id number] IMPRESSION: No acute findings.
[2022-10-06 14:55] LABS: HCG Qualitative Urine. Negative (Negative)
[2022-10-06 16:14] VITALS: BP 113/78; PULSE 73; RESP 18; TEMP 36.7; O2SAT 97
[2022-10-06 18:51] VITALS: PULSE 82; RESP 18; O2SAT 100
[2022-10-06] MEDS: albuterol 2.5 mg/3 mL Neb INHALATION (18:51)
[2022-10-06 18:54] VITALS: PULSE 77
[2022-10-06 21:25] VITALS: BP 124/73; PULSE 90; RESP 18; TEMP 36.8; O2SAT 96
[2022-10-06] MEDS: mirtazapine 30 mg Tablet PO (21:53)
[2022-10-06] MEDS: OLANZapine 10 mg TABLET PO (21:54)
[2022-10-07 06:00] VITALS: BP 105/66; PULSE 65; RESP 16; TEMP 37.2; O2SAT 98
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
[2022-10-07] MEDS: buPROPion XL (24 HR) 300 mg Tablet PO (09:19)
[2022-10-07] MEDS: acetaminophen 325 mg Tablet 650 MG PO ×2 (09:19→21:25)
[2022-10-07 14:00] VITALS: BP 127/66; PULSE 88; RESP 18; TEMP 36.9; O2SAT 97
[2022-10-07] MEDS: propranolol 20 mg Tablet PO (21:25)
[2022-10-07] MEDS: OLANZapine 10 mg TABLET PO (21:25)
[2022-10-07] MEDS: mirtazapine 30 mg Tablet PO (21:25)
[2022-10-07] MEDS: trazodone 50 mg Tablet PO (21:25)
[2022-10-07 21:29] VITALS: BP 101/64; PULSE 96; RESP 17; TEMP 36.6; O2SAT 97
[2022-10-08] MEDS: buPROPion XL (24 HR) 300 mg Tablet PO (08:58)
[2022-10-08] MEDS: acetaminophen 325 mg Tablet 650 MG PO ×2 (09:02→21:39)
--- NOTE | 2022-10-08 10:00 | PC.NURSE ---
Pt up and about; attended group; voicing no complaints.
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
[2022-10-08 14:00] VITALS: BP 112/79; PULSE 86; RESP 16; TEMP 36.7; O2SAT 95
[2022-10-08] MEDS: docusate sodium 100 mg Capsule PO (15:02)
[2022-10-08] MEDS: OLANZapine 5 mg ODT PO (17:08)
[2022-10-08] MEDS: hyDROXYzine 25 mg Capsule 50 MG PO (18:22)
[2022-10-08 18:37] VITALS: PULSE 85; RESP 16; O2SAT 98
[2022-10-08] MEDS: albuterol 2.5 mg/3 mL Neb INHALATION (18:37)
[2022-10-08 19:50] VITALS: BP 104/52; PULSE 96; RESP 18; TEMP 36.8; O2SAT 97
[2022-10-08] MEDS: OLANZapine 10 mg TABLET PO (21:38)
[2022-10-08] MEDS: mirtazapine 30 mg Tablet PO (21:38)
[2022-10-08] MEDS: propranolol 20 mg Tablet PO (21:39)
[2022-10-09 06:00] VITALS: BP 112/67; PULSE 64; RESP 16; TEMP 36.8; O2SAT 96
[2022-10-09] MEDS: buPROPion XL (24 HR) 300 mg Tablet PO (09:46)
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
[2022-10-09] MEDS: OLANZapine 5 mg ODT PO (13:41)
[2022-10-09 14:00] VITALS: BP 120/74; PULSE 72; RESP 16; TEMP 36.9; O2SAT 96
[2022-10-09] MEDS: hyDROXYzine 25 mg Capsule 50 MG PO ×2 (16:02→21:18)
[2022-10-09 20:01] VITALS: BP 127/91; PULSE 96; RESP 16; TEMP 37.1; O2SAT 96
[2022-10-09] MEDS: mirtazapine 30 mg Tablet PO (21:17)
[2022-10-09] MEDS: propranolol 20 mg Tablet PO (21:17)
[2022-10-09] MEDS: OLANZapine 10 mg TABLET PO (21:17)
[2022-10-09] MEDS: magnesium hydroxide 30 mL UDC 15 ML PO (21:18)
[2022-10-10 06:00] VITALS: BP 120/71; PULSE 74; RESP 16; TEMP 36.9; O2SAT 96
[2022-10-10] MEDS: buPROPion XL (24 HR) 300 mg Tablet PO (08:21)
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
[2022-10-10 14:00] VITALS: BP 108/66; PULSE 88; RESP 18; TEMP 36.8; O2SAT 98
[2022-10-10] MEDS: hyDROXYzine 25 mg Capsule 50 MG PO (17:16)
--- NOTE | 2022-10-10 17:17 | PC.NURSE ---
PRN VISTARIL 50 MG GIVEN PO PER PT C/O STATED ANXIETY
[2022-10-10] MEDS: OLANZapine 10 mg TABLET PO (20:29)
[2022-10-10] MEDS: mirtazapine 30 mg Tablet PO (20:29)
[2022-10-10 21:42] VITALS: BP 117/78; PULSE 88; RESP 18; TEMP 36.8; O2SAT 98
[2022-10-10] MEDS: propranolol 20 mg Tablet PO (23:22)
[2022-10-10] MEDS: trazodone 50 mg Tablet PO (23:22)
[2022-10-11] MEDS: acetaminophen 325 mg Tablet 650 MG PO (03:36)
[2022-10-11] MEDS: hyDROXYzine 25 mg Capsule 50 MG PO (03:37)
[2022-10-11 06:00] VITALS: BP 103/67; PULSE 66; RESP 17; TEMP 36.8; O2SAT 98
[2022-10-11] MEDS: buPROPion XL (24 HR) 300 mg Tablet PO (07:44)
[2022-10-11 09:36] VITALS: BP 103/67; PULSE 66; RESP 17; TEMP 36.8; O2SAT 98
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
--- NOTE | 2022-10-11 11:53 | PC.NURSE ---
discharge instructions discussed and left with patient. no questions asked pt stated understanding and compliance. waiting for ride from [facility] for departure.
== END 2022-10-11 12:19 | disposition home or self-care (01) | DRG 881 ==
LOC: ER 10:15 → NP 14:34
PROVIDERS: Admitting Provider Psychiatry & Neurology Psychiatry; Emergency Provider Family Medicine; Visit Provider Psychiatry & Neurology Psychiatry
DX: F32.A Depression, unspecified (principal); R45.851 Suicidal ideations; F15.21 Other stimulant dependence, in remission; F43.10 Post-traumatic stress disorder, unspecified
CPT/HCPCS: 36415; 71045; 80053; 80307; 81003; 81025; 85025; 94640; 97150; 97165; 99238; 99285; J7613

== ENCOUNTER → 2023-01-04 13:33 | Outpatient (BNVA) | payer OTHER, MEDICAID, SELFPAY | PROVIDERS: Visit Provider Nurse Practitioner | DX: Z79.899 Other long term (current) drug therapy (principal) | CPT/HCPCS: 80061; 83036 ==

== ENCOUNTER 2023-01-06 12:32 | Outpatient (CLI) | payer OTHER, MEDICAID, SELFPAY ==
--- NOTE | 2023-01-06 12:38 | USR_ITS ---
PROCEDURE INFORMATION: Exam: US Duplex Left Lower Extremity Arteries Or Arterial Bypass Grafts Exam date and time: 01/06/2023 1:04 PM Age: 37 years old Clinical indication: Pain; Leg, lower; Left; Additional info: Pain in left lower leg TECHNIQUE: Imaging protocol: Left Real-time duplex scan of the arteries or arterial bypass grafts of the left lower extremity with 2-D carrasco scale, color Doppler flow and spectral waveform analysis. Images documented and saved. COMPARISON: CT abdomen pelvis w con* [id number] 12/27/2019 7:36 PM FINDINGS: Left common femoral artery: No occlusion or significant stenosis. Normal waveform. Left superficial femoral artery: No occlusion or significant stenosis. Normal waveform. Left popliteal artery: No occlusion or significant stenosis. Normal waveform. Left calf/foot arteries: No occlusion or significant stenosis in the visualized arteries. Normal waveforms. Dorsalis pedis artery is patent. US/CV arterial duplex [facility] [id number] IMPRESSION: No stenosis or occlusion.
== END 2023-01-06 12:33 | disposition home or self-care (01) ==
PROVIDERS: PCP Nurse Practitioner Family; Visit Provider Nurse Practitioner Family
DX: M79.662 Pain in left lower leg (principal)
CPT/HCPCS: 93926

== ENCOUNTER 2023-06-07 13:19 | Inpatient (IN) | payer MEDICARE, MEDICAID, SELFPAY ==
[2023-06-07 13:34] VITALS: BP 136/90; PULSE 86; TEMP 36.2; O2SAT 95; BMI 36.1
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
[2023-06-07 14:28] LABS: Basophils # 0.1 10^3/uL (0.0-0.1); Basophils % 0.9 %; Eosinophils # 0.2 10^3/uL (0.0-0.8); Eosinophils % 1.8 %; Hematocrit 44.5 % (36-47); Lymphocytes # 2.7 10^3/uL (0.8-4.8); Lymphocytes % 27.3 %; Mean Corpuscular HGB Conc 32.1 g/dL (30-55); Mean Corpuscular Hemoglobin 28.1 pg (27-33); Mean Corpuscular Volume 87.6 fl (85-98); Mean Platelet Volume 9.3 fL (7.4-10.4); Monocytes # 0.6 10^3/uL (0.2-0.9); Neutrophils # 6.33 10^3/uL (1.8-7.7); Neutrophils % 63.5 %; Nucleated Red Blood Cells % 0 %; Platelet Count 385 10^3/cmm (157-399); Red Blood Count 5.08 10^6/uL (3.85-5.65); Red Cell Distribution Width 13.2 % (12.1-15.1); White Blood Count 9.97 10^3/uL (3.29-11.43)
[2023-06-07 14:53] LABS: Alanine Aminotransferase 15 U/L (0-33); Alkaline Phosphatase 116 U/L (35-105); Anion Gap 16.9 (5-19); Aspartate Amino Transferase 14 U/L (0-32); Blood Urea Nitrogen 9 mg/dL (6-20); Carbon Dioxide 18 mmol/L (22-29); Chloride 109 mmol/L (98-107); Globulin 2.7 g/dL (1.3-4.6); Glomerular Filtration Rate 94.2 mL/min (90-130); Glucose 132 mg/dL (65-115); Osmolality Calculated 291 mOsm/kg (285-295); Potassium 3.9 mmol/L (3.5-5.1); Sodium 140 mmol/L (136-145); Total Bilirubin 0.2 mg/dL (0.15-1.2); Total Protein 6.7 g/dL (6.6-8.7)
[2023-06-07 14:54] LABS: Acetaminophen < 5.0 ug/mL (10-30); Alcohol Level < 10 mg/dL (0-10); Salicylate < 0.3 mg/dL (3-10)
[2023-06-07 14:56] LABS: Amphetamines Screen Urine Negative (Negative); Barbiturates Screen Urine Negative (Negative); Benzodiazepines Screen Urine Negative (Negative); Cocaine Screen Urine Negative (Negative); Opiate Screen Urine Negative (Negative); PCP Screen Urine Negative (Negative); THC Screen Urine Negative (Negative)
[2023-06-07 15:34] LABS: HCG, Serum Qual Negative (Negative)
[2023-06-07 16:45] VITALS: BP 122/65; PULSE 81; RESP 16; TEMP 36.6; O2SAT 94
[2023-06-07 17:30] VITALS: BP 138/92; PULSE 88; RESP 18; TEMP 36.8; O2SAT 97
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
[2023-06-07 20:40] VITALS: BP 100/67; PULSE 93; RESP 16; TEMP 37; O2SAT 96
[2023-06-07] MEDS: BuSPIRONE 10 mg Tablet PO (20:44)
[2023-06-07] MEDS: metformin 500 mg Tablet PO (20:44)
[2023-06-07] MEDS: trazodone 50 mg Tablet PO (20:44)
[2023-06-07] MEDS: atorvastatin 40 mg Tablet PO (20:45)
[2023-06-07 20:51] LABS: Glucose Point of Care 112 mg/dL (70-110)
[2023-06-08] MEDS: trazodone 50 mg Tablet PO ×2 (01:05→20:35)
[2023-06-08 06:00] VITALS: BP 94/61; PULSE 74; RESP 16; O2SAT 97
[2023-06-08] MEDS: buPROPion XL (24 HR) 300 mg Tablet PO (09:37)
[2023-06-08] MEDS: duloxetine 30 mg Capsule PO (09:37)
[2023-06-08] MEDS: BuSPIRONE 10 mg Tablet PO ×3 (09:37→20:35)
[2023-06-08] MEDS: pantoprazole DR 40 mg Tablet PO (09:37)
[2023-06-08] MEDS: naltrexone hcl 50 mg Tablet PO (09:37)
[2023-06-08] MEDS: quetiapine 100 mg Tablet 200 MG PO (09:37)
[2023-06-08 14:00] VITALS: BP 108/72; PULSE 76; RESP 16; TEMP 36.8; O2SAT 95
--- NOTE | 2023-06-08 15:41 | P.NPUHP_ITS ---
Providers/Chief Complaint Admitting Physician: Capo Gamble MD Primary Care Provider: Nika Lozano DNP Chief Complaint: SI HPI NPU History of Present Illness Qing Helm is a 37 year old female who presented to the emergency department with complaints of suicidal ideation for the past 4 days. She was admitted to the neuropsychiatric unit for further evaluation and treatment. She has a history of depression, mild cognitive impairment, along with methamphetamine dependence and reports worsening depression over the past few weeks. Patient jaeger d previously been admitted to the neuropsychiatric unit in September 2022 after she had attempted to drown herself in her bathtub. The patient had endorsed that she had been clean off of any illicit substances for the past 10 months. She reports that after her last hospitalization here she had gone for further treatment at the [facility]. The patient reported that after her completing her 30-day treatment there, she had been transition to a residential center in [facility]. She states that she is near the end of her time there and she reports that she has had increased anxiety about potentially being homeless and on the street again. She reports a lack of social support. She does report some feelings of guilt and reports frequently struggling with sadness. She reports increased financial stressors and states that she has been struggling with keeping or obtaining a job. Patient had endorsed that she has not had any cravings for methamphetamine. She denied any current psychotic symptoms. She denied any recent self-injurious behavior. She does report having more frequent crying spells recently. She reports struggles with sleep continuity disruption. She does report having difficulties with concentration and does endorse anhedonia over the last month despite being compliant with her current medication regimen. She endorses having chronic struggles with maint aining control of her worry. She often reports having tension and reports that her worry often makes her irritable and affects her ability to fall asleep as she spends time at night often not being able to manage her worries which leads to some insomnia as well. Inpatient psychiatric history: She reports multiple inpatient hospitalizations in the past with her last hospitalization having occurred 8 months ago here at the neuropsychiatric unit. She has a history of suicidal ideation and past hi story of suicide attempt via overdose and by drowning. Outpatient psychiatric history: She currently receives services through [facility] under JESUS Arrington for medication management. She also reports receiving psychotherapy services through [facility] for her addiction. Drug and alcohol history: She has extended history of methamphetamine use lasting for several years with her longest period of sobriety being currently at about 10 months. She had reported that she had been in rehabilitation faci lities before in the past. Current psychiatric medications: Wellbutrin XL 300 mg daily, naltrexone 50 mg daily, Cymbalta 30 mg daily, hydroxyzine 50 mg 3 times a day, trazodone 50 mg at night, Seroquel 25 mg twice a day, Seroquel 200 mg at night Legal History: She reports some continued charges for delivery of narcotics Medical history: Glucosuria Surgical history: Appendectomy Developmental history: History of a learning disorder and intellectual disability Family psychiatric history: None reported Social history: She reported having graduated from special education classes. She states she was raised by her biological parents who are both as her mother in 2012 and her father in 2017. She reports that she has not been working. She had previously been residing in [place] with her boyfriend prior to entering into the [facility] program. She is currently residing in a residential center in [place]. She had reported early onset use of methamphetamine as an adolescent. She reports not having many social supports. [facility] Evaluation from 01/04/23 shown below. [facility] History and Physical Time In: 12:00 Time Out: 13:00 Chief Complaint: Depression and anxiety History of Present Illness: [facility].? She was hospitalized September 2022 after an attempted suicide attempt by drowning in the bathtub.? She states she is currently in [facility] outpatient rehab program.? She is also living in a residential treatment in [place].? Qing describes her mood as depressed.? She states this is increased during the daytime.? She states she cries easily.? Feels upset.? Does not want to talk to anybody.? She has continued intermittent suicidal thoughts.? Thoughts are to drown herself in the bathtub.? She tells me she does not have a bathtub where she lives currently.? Denies auditory hallucinations but does verbalize visual hallucinations.? When I asked her to describe this she states I do not know .? No thoughts of harming others.? She initially tells me she sleeps from 8 PM to 6 AM.? She describes her sleep is poor.? States she does wake up to use the bathroom and not always is she able to go back to bed.? Reports anxiety.? States she worries about drug court.? Has been told this is placed on hold until she is able to get into [facility].? She has been sober from methamphetamines for 4 months now.? She denies any cravings for that today.? She does reference being locked up and not able to do things she enjoys such as swimming and kayaking. History Past Psychiatric History: Qing tells me she has been hospitalized 4-5 different times in psychiatric units for suicidal thoughts.? Her last hospitalization was October 07.? She states this was after she attempted to drown herself in a bathtub.? She has been seen at [facility] off-and-on on an outpatient basis but not on a regular basis.? Last she saw family in 2016.? Diagnosis at that time included depression and methamphetamine use.? Her current medications include Seroquel 50 mg at bedtime, trazodone 50 mg at bedtime, hydroxyzine 50 mg up to 3 times daily as needed for anxiety, olanzapine 10 mg at bedtime, Remeron 45 mg at bedtime, propranolol 20 mg 3 times a day, and Wellbutrin XL 300 mg daily. She tells me she has been on these medications for at least a couple months but could be as long as 4 months. Family History: Qing tells me her father was not able to read.? She states her sister has a history of drug use. Past Medical History: She is unable to verbalize her current primary care provider.? She states her physical health is good.? Reports prior surgeries including having her appendix out.? Tells me she thinks she takes medication for cholesterol and also is on the Depo-Provera injection.? States she is not able to have kids because her uterus is too small. Substance Use History: Qing denies nicotine use.? States she has taken a puff but has never been a regular smoker. ? Qing denies current marijuana use.? States she last used 5 years ago.? States she did not like marijuana and it was never her drug of choice.? She states when she did use it she did not use it for very long. ? Qing denies alcohol use.? She states alcohol is not her thing.? She estimates last drinking alcohol around the age of 21. ? Qing reports methamphetamine as her drug of choice.? She states she last used August 24, 2022.? She states she used via all routes including IV.? She states she has used methamphetamine 15 to 16 years. ? Qing denies other drug use including opiate pain medication, cocaine, heroin, anxiety medications ? Qing has been to rehab 3-4 different times.? She has [facility] [place] in [facility].? States she attends the outpatient program for 8 hours a day Tuesday through .? She has been in the outpatient program for about 1 month.? Prior to this she completed 90 days in the inpatient program. Social History: Qing states she is currently living in a residential treatment in [place].? She has lived there for 1.5 months.? She states she is single and has no children.? She has been on disability all of her adult life.? She states the reason she is on disability is mental retardation .? She states she did graduate high school but she is not able to read or write.? 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 She tells me she is currently in drug court but also states that is on hold.? She states she has been to assisted 4-5 different times for drugs.? She is on probation for at least the next 5 years because of drugs.? Denies a history of physical, emotional, sexual abuse.? Her family includes 1 sister who does not speak to her because of her drug use and another sister who was a previous drug user but has not used in 5 years.? States her mom and dad are both . Meds NPU Home Medications Medication Instructions Recorded Confirmed Last Taken Type albuterol sulfate 90 mcg/actuation 1 - 2 puff inhalation Q6H PRN 10/11/22 06/07/23 Unknown Rx aerosol inhaler (ProAir HFA) Shortness Of Breath 30 days #2.5 grams propranolol 20 mg tablet 20 mg PO TID PRN Blood Pressure 30 10/11/22 06/07/23 Unknown Rx days #90 tabs bupropion HCl 300 mg 24 hr tablet, 300 mg PO DAILY 30 days #30 tabs 05/02/23 06/07/23 06/07/23 Rx extended release buspirone 10 mg tablet 10 mg PO TID #90 tabs 05/02/23 06/07/23 06/07/23 Rx duloxetine 30 mg capsule,delayed 30 mg PO DAILY #30 caps 05/02/23 06/07/23 06/07/23 Rx release (Cymbalta) hydroxyzine pamoate 50 mg capsule 50 mg PO TID PRN Anxiety 30 days 05/02/23 06/07/23 Unknown Rx #90 caps naltrexone 50 mg tablet 50 mg PO DAILY #30 tabs 05/02/23 06/07/23 06/07/23 Rx quetiapine 200 mg tablet 200 mg PO DAILY #30 tabs 05/02/23 06/07/23 06/07/23 Rx quetiapine 25 mg tablet 25 mg PO BID PRN withdrawal 05/02/23 06/07/23 Unknown Rx symptoms 30 days #60 tabs trazodone 50 mg tablet 50 mg PO BEDTIME PRN Sleep 30 days 05/02/23 06/07/23 Unknown Rx #30 tabs atorvastatin 10 mg tablet 10 mg PO BEDTIME 06/07/23 06/07/23 06/06/23 History baclofen 10 mg PO TID PRN Anxiety 06/07/23 06/07/23 Unknown History ergocalciferol (vitamin D2) 1,250 1,250 mcg PO Q7D 06/07/23 06/07/23 06/06/23 History mcg (50,000 unit) capsule linaclotide 290 mcg capsule 290 mcg PO DAILY 06/07/23 06/07/23 06/07/23 History (Linzess) liraglutide 0.6 mg/0.1 mL (18 mg/3 1.2 mg SUBCUT DAILY 06/07/23 06/07/23 1 08/07/22 History mL) subcutaneous pen injector (smsPREPtoza 2-Paul) medroxyprogesterone 150 mg/mL 150 mg IM Q90D 06/07/23 06/07/23 Unknown History intramuscular syringe metformin 500 mg tablet 500 mg PO BEDTIME 06/07/23 06/07/23 06/06/23 History omeprazole 20 mg capsule,delayed 20 mg PO DAILY 06/07/23 06/07/23 06/07/23 History release ondansetron 8 mg PO TID PRN Nausea 06/07/23 06/07/23 Unknown History Allergies Allergy/AdvReac Type Severity Reaction Status Date / Time No Known Allergies Allergy Verified 06/07/23 13:39 PFSH NPU PFSH: Medical History GILDARDO (generalized anxiety disorder) Glucosuria Intellectual disability Major depressive disorder, recurrent, moderate Methamphetamine use disorder, moderate, in early remission, dependence Psychiatric care Surgical History No pertinent past surgical history Social History Smoking and tobacco/nicotine status: never used tobacco/nicotine Alcohol intake: never Substance/Drug Use: current Substance/Drug use frequency: daily Female Reproductive History: Spontaneous abortions: No Mental Status Exam MSE Comments: The patient is a casually dressed white female who appeared in mild to moderate distress. She was lying in bed and was compliant on interview. There was no evidence of any abnormal involuntary motor movements tics or tremors appreciated. There was clear evidence of moderate psychomotor retardation. Her mood was described as depressed. Her affect was mood congruent and restricted in range. Her thought process was linear and logical. She endorsed suicidal ideation but no active plan. She minimized any homicidal ideation. She did not appear to be responding internal stimuli. There was no clear evidence of delusional thinking. Her attention span appeared poor. Her insight and judgment were impaired. Her impulse control appeared impaired as well. Her intelligence appeared commensurate with mild cognitive impairment. Vitals/I&O/Wt Last Vital Signs Temp 98.2 F 06/08/23 14:00 Pulse 76 06/08/23 14:00 Resp 16 06/08/23 14:00 BP 108/72 06/08/23 14:00 Pulse Ox 95 06/08/23 14:00 O2 Del Method Room Air 06/08/23 14:00 Weight last 48 hrs Weight 86.636 kg Data NPU 06/07/23 14:16 06/07/23 14:16 A&P Assessment and plan (1) Suicidal ideation: (2) MDD (major depressive disorder), recurrent episode: (3) GILDARDO (generalized anxiety disorder): (4) Methamphetamine use disorder, moderate, in early remission, dependence: Plan 37-year-old single white female with mild cognitive impairment, methamphetamine dependence and depression admitted with suicidal ideation in the context of increased stressors. Patient would likely benefit from an adjustment in her medications. 1. Encourage individual, group and milieu therapy. 2. Recommend sober living treatment at the highest level of care to which the patient is willing to commit. 3. Continue q-15 minute checks for safety.? 4.? Restart current medications. 5.? Will attempt to gather collateral information. Involuntary Hold Information 96 Hour Hold: 96 Hour Involuntary Admission: No Attestations NPU Medical Necessity Statement*: Inpatient hospitalization is medically necessary and the clinically appropriate decision at this time. We will monitor and initiate medications as indicated. The patient will be hospitalized for at least two midnights. Her likely length of stay of 2-4 days. Coding Level of Care Code Acute Code for [facility] Fwd Diagnoses Suicidal ideation R45.851 MDD (major depressive disorder), recurrent episode F33.9 GILDARDO (generalized anxiety disorder) F41.1 Methamphetamine use disorder, moderate, in early remission, dependence F15.21
[2023-06-08 20:33] VITALS: BP 92/51; PULSE 75; RESP 18; TEMP 36.8; O2SAT 94
[2023-06-08] MEDS: atorvastatin 40 mg Tablet PO (20:35)
[2023-06-08] MEDS: metformin 500 mg Tablet PO (20:35)
[2023-06-09 06:00] VITALS: BP 116/67; PULSE 83; RESP 15; TEMP 36.9; O2SAT 97
[2023-06-09] MEDS: baclofen 10 mg Tablet PO (07:29)
[2023-06-09] MEDS: duloxetine 30 mg Capsule PO (07:29)
[2023-06-09] MEDS: BuSPIRONE 10 mg Tablet PO (07:29)
[2023-06-09] MEDS: quetiapine 100 mg Tablet 200 MG PO (07:29)
[2023-06-09] MEDS: buPROPion XL (24 HR) 300 mg Tablet PO (07:30)
[2023-06-09] MEDS: naltrexone hcl 50 mg Tablet PO (07:30)
[2023-06-09] MEDS: pantoprazole DR 40 mg Tablet PO (07:30)
[2023-06-09 08:59] VITALS: BP 116/67; PULSE 83; RESP 15; TEMP 36.9; O2SAT 97
--- NOTE | 2023-06-09 10:21 | PC.NURSE ---
CONTACT JULIANNE BISHOP CAN BE REACHED AT [facility] @ [phone]
--- NOTE | 2023-06-09 10:41 | W.PM.NPUDCS ---
Diagnoses at Discharge Discharge Diagnosis (1) Suicidal ideation: Status: Resolved (2) MDD (major depressive disorder), recurrent episode: Status: Acute (3) GILDARDO (generalized anxiety disorder): Status: Acute (4) Methamphetamine use disorder, moderate, in early remission, dependence: Status: Resolved Reason for Visit Reason for Visit: SI Brief History: History of Present Illness Qing Helm is a 37 year old female who presented to the emergency department with complaints of suicidal ideation for the past 4 days. She was admitted to the neuropsychiatric unit for further evaluation and treatment. She has a history of depression, mild cognitive impairment, along with methamphetamine dependence and reports worsening depression over the past few weeks. Patient had previously been admitted to the neuropsychiatric unit in September 2022 after she had attempted to drown herself in her bathtub. The patient had endorsed that she had been clean off of any illicit substances for the past 10 months. She reports that after her last hospitalization here she had gone for further treatment at the [facility]. The patient reported that after her completing her 30-day treatment there, she had been transition to a residential center in [facility]. She states that she is near the end of her time there and she reports that she has had increased anxiety about potentially being homeless and on the street again. She reports a lack of social support. She does report some feelings of guilt and reports frequently struggling with sadness. She reports increased financial stressors and states that she has been struggling with keeping or obtaining a job. Patient had endorsed that she has not had any cravings for methamphetamine. She denied any current psychotic symptoms. She denied any recent self-injurious behavior. She does report having more frequent crying spells recently. She reports struggles with sleep continuity disruption. She does report having difficulties with concentration and does endorse anhedonia over the last month despite being compliant with her current medication regimen. She endorses having chronic struggles with maintaining control of her worry. She often reports having tension and reports that her worry often makes her irritable and affects her ability to fall asleep as she spends time at night often not being able to manage her worries which leads to some insomnia as well. Inpatient psychiatric history: She reports multiple inpatient hospitalizations in the past with her last hospitalization having occurred 8 months ago here at the neuropsychiatric unit. She has a history of suicidal ideation and past history of suicide attempt via overdose and by drowning. Outpatient psychiatric history: She currently receives services through [facility] under JESUS Arrington for medication management. She also reports receiving psychotherapy services through [facility] for her addiction. Drug and alcohol history: She has extended history of methamphetamine use lasting for several years with her longest period of sobriety being currently at about 10 months. She had reported that she had been in rehabilitation facilities before in the past. Current psychiatric medications: Wellbutrin XL 300 mg daily, naltrexone 50 mg daily, Cymbalta 30 mg daily, hydroxyzine 50 mg 3 times a day, trazodone 50 mg at night, Seroquel 25 mg twice a day, Seroquel 200 mg at night Legal History: She reports some continued charges for delivery of narcotics Medical history: Glucosuria Surgical history: Appendectomy Developmental history: History of a learning disorder and intellectual disability Family psychiatric history: None reported Social history: She reported having graduated from special education classes. She states she was raised by her biological parents who are both as her mother in 2012 and her father in 2018. She reports that she has not been working. She had previously been residing in [place] with her boyfriend prior to entering into the [facility] program. She is currently residing in a residential center in [place]. She had reported early onset use of methamphetamine as an adolescent. She reports not having many social supports. Hospital Course Hospital Course She had significant improvement and was able to contract for safety, outside the hospital prior to discharge. During the hospitalization, patient had routine laboratory studies which were within normal limits except for few outliers. Additionally there was a general medical evaluation which was also within normal limits and revealed no new acute processes. At the time of discharge, he denied psychosis or lethality. Mood and anxiety were well managed. Patient endorsed a plan to avoid all drugs of abuse and follow-up with the aftercare recommendations of the treatment team. Patient was evaluated and deemed to be absent credible lethality, and had achieved the maximum benefit from an inpatient hospitalization, so was discharged. Involuntary Hold Information 96 Hour Hold: 96 Hour Involuntary Admission: No Mental Status Exam MSE Comments: The patient is a casually dressed white female who appeared in mild to moderate distress. She was lying in bed and was compliant on interview. There was no evidence of any abnormal involuntary motor movements tics or tremors appreciated. There was clear evidence of moderate psychomotor retardation. Her mood was described as better.. Her affect was less restricted on discharge. Her thought process was linear and logical. She endorsed no suicidal ideation and no active plan. She minimized any homicidal ideation. She did not appear to be responding internal stimuli. There was no clear evidence of delusional thinking. Her attention span appeared fair. Her insight and judgment were adequate on discharge. Her mpulse control appeared at baseline at discharge. Her intelligence appeared commensurate with mild cognitive impairment. Discharge Data Studies Completed and Pending: Laboratory Results WBC 9.97 10^3/uL (3.2 9-11.43) 06/07/23 14:16 RBC 5.08 10^6/uL (3.8 5-5.65) 06/07/23 14:16 Hgb 14.30 g/dL (11.27 -16.99) 06/07/23 14:16 Hct 44.5 % (36-47) 06/07/23 14:16 MCV 87.6 fl (85-98) 06/07/23 14:16 MCH 28.1 pg (27-33) 06/07/23 14:16 MCHC 32.1 g/dL (30-55) 06/07/23 14:16 RDW 13.2 % (12.1-15.1 ) 06/07/23 14:16 Plt Count 385 10^3/cmm (157 -399) 06/07/23 14:16 MPV 9.3 fL (7.4-10.4) 06/07/23 14:16 Neut % (Auto) 63.5 % 06/07/23 14:16 Lymph % (Auto) 27.3 % 06/07/23 14:16 Humphreys % (Auto) 6.0 % 06/07/23 14:16 Eos % (Auto) 1.8 % 06/07/23 14:16 Baso % (Auto) 0.9 % 06/07/23 14:16 Neut # (Auto) 6.33 10^3/uL (1.8 -7.7) 06/07/23 14:16 Lymph # (Auto) 2.7 10^3/uL (0.8- 4.8) 06/07/23 14:16 Humphreys # (Auto) 0.6 10^3/uL (0.2- 0.9) 06/07/23 14:16 Eos # (Auto) 0.2 10^3/uL (0.0- 0.8) 06/07/23 14:16 Baso # (Auto) 0.1 10^3/uL (0.0- 0.1) 06/07/23 14:16 Nucleated RBC % (a uto) 0 % 06/07/23 14:16 Nucleated RBCs # 0.0 /100WBC 06/07/23 14:16 Sodium 140 mmol/L (136-1 45) 06/07/23 14:16 Potassium 3.9 mmol/L (3.5-5 .1) 06/07/23 14:16 Chloride 109 mmol/L (98-10 7) H 06/07/23 14:16 Carbon Dioxide 18 mmol/L (22-29) L 06/07/23 14:16 Anion Gap 16.9 (5-19) 06/07/23 14:16 BUN 9 mg/dL (6-20) 06/07/23 14:16 Creatinine 0.7 mg/dL (0.5-0. 9) 06/07/23 14:16 GFR Calculation 94.2 mL/min (90-1 30) 06/07/23 14:16 Glucose 132 mg/dL (65-115 ) H 06/07/23 14:16 POC Glucose 112 mg/dL (70-110 ) H 06/07/23 20:48 Calculated Osmolal ity 291 mOsm/kg (285- 295) 06/07/23 14:16 Calcium 9.0 mg/dL (8.5-10 .5) 06/07/23 14:16 Total Bilirubin 0.2 mg/dL (0.15-1 .2) 06/07/23 14:16 AST 14 U/L (0-32) 06/07/23 14:16 ALT 15 U/L (0-33) 06/07/23 14:16 Alkaline Phosphata se 116 U/L (35-105) H 06/07/23 14:16 Total Protein 6.7 g/dL (6.6-8.7 ) 06/07/23 14:16 Albumin 4.0 g/dL (3.5-5.2 ) 06/07/23 14:16 Globulin 2.7 g/dL (1.3-4.6 ) 06/07/23 14:16 HCG, Qual Negative (Negati ve) 06/07/23 14:55 Salicylates < 0.3 mg/dL (3-10 ) L 06/07/23 14:16 Urine Opiates Scre en Negative ng/mL (N egative) 06/07/23 14:15 Acetaminophen < 5.0 ug/mL (10-3 0) L 06/07/23 14:16 Ur Barbiturates Sc reen Negative ng/mL (N egative) 06/07/23 14:15 Ur Phencyclidine S crn Negative ng/mL (N egative) 06/07/23 14:15 Ur Amphetamines Sc reen Negative ng/mL (N egative) 06/07/23 14:15 U Benzodiazepines Scrn Negative ng/mL (N egative) 06/07/23 14:15 Urine Cocaine Scre en Negative ng/mL (N egative) 06/07/23 14:15 U Marijuana (THC) Screen Negative ng/mL (N egative) 06/07/23 14:15 Ethyl Alcohol < 10 mg/dL (0-10) 06/07/23 14:16 Vitals: Last Vital Signs Temp 98.5 F 06/09/23 08:59 Pulse 83 06/09/23 08:59 Resp 15 06/09/23 08:59 BP 116/67 06/09/23 08:59 Pulse Ox 97 06/09/23 08:59 O2 Del Method Room Air 06/09/23 06:00 Discharge Plan Discharge Patient Disposition: Home Condition: Stable Prescriptions: Continued buspirone 10 mg tablet 10 mg PO TID Qty: 90 2RF albuterol sulfate [ProAir HFA] 90 mcg/actuation HFA aerosol inhaler 1 - 2 puff inhalation Q6H PRN (Reason: Shortness Of Breath) 30 Days Qty: 2.5 1RF propranolol 20 mg tablet 20 mg PO TID PRN (Reason: Blood Pressure) 30 Days Qty: 90 1RF medroxyprogesterone 150 mg/mL syringe 150 mg IM Q90D metformin 500 mg tablet 500 mg PO BEDTIME atorvastatin 10 mg tablet 10 mg PO BEDTIME omeprazole 20 mg capsule,delayed release(DR/EC) 20 mg PO DAILY ergocalciferol (vitamin D2) 1,250 mcg (50,000 unit) capsule 1,250 mcg PO Q7D Victoza 2-Paul 0.6 mg/0.1 mL (18 mg/3 mL) pen injector 1.2 mg SUBCUT DAILY Linzess 290 mcg capsule 290 mcg PO DAILY baclofen 10 mg PO TID PRN (Reason: Anxiety) ondansetron 8 mg 8 mg PO TID PRN (Reason: Nausea) No Action duloxetine [Cymbalta] 60 mg capsule,delayed release(DR/EC) 60 mg PO DAILY Qty: 30 1RF bupropion HCl 300 mg tablet extended release 24 hr 300 mg PO DAILY 30 Days Qty: 30 2RF hydroxyzine pamoate 50 mg capsule 50 mg PO TID PRN (Reason: Anxiety) 30 Days Qty: 90 2RF naltrexone 50 mg tablet 50 mg PO DAILY Qty: 30 2RF trazodone 50 mg tablet 50 mg PO BEDTIME PRN (Reason: Sleep) 30 Days Qty: 30 2RF Discharge Orders: Discharge Order (Routine); Ordered 06/09/23 Ordered By: Capo Gamble Referrals: [facility] [Outside] - 06/16/23 2:45 am (One time hospital follow up with Stephen Garcia.) Leidy Lundberg PMHNP [Staff Physician] - 07/08/23 12:45 pm (Follow up) Nika Lozano DNP [Primary Care Provider] - Discharge Diet: Usual diet Discharge Activity: Resume usual activity Patient Instructions: Depression (GEN), Help Prevent Suicide (GEN), Opioid Safety Discharge Attestations NPU Time Spent in Discharge Care*: less than 30 min Specific Discharge Activities: Specific discharge activities: educating patient and discussing with pcp/other providers Coding Level of Care Code Acute Code for Chg Fwd Diagnoses Suicidal ideation R45.851 MDD (major depressive disorder), recurrent episode F33.9 GILDARDO (generalized anxiety disorder) F41.1 Methamphetamine use disorder, moderate, in early remission, dependence F15.21
== END 2023-06-09 11:12 | disposition home or self-care (01) | DRG 885 ==
LOC: ER 15:33 → NP 16:13
PROVIDERS: Physician Assistant; Admitting Provider Psychiatry & Neurology Psychiatry; Emergency Provider Family Medicine; PCP Nurse Practitioner Family; Visit Provider Psychiatry & Neurology Psychiatry
DX: F33.9 Major depressive disorder, recurrent, unspecified (principal); R45.851 Suicidal ideations; F41.1 Generalized anxiety disorder; F79 Unspecified intellectual disabilities; F15.21 Other stimulant dependence, in remission; G31.84 Mild cognitive impairment of uncertain or unknown etiology; Z56.0 Unemployment, unspecified; Z60.8 Other problems related to social environment; Z91.51 Personal history of suicidal behavior
CPT/HCPCS: 36415; 36416; 80053; 80306; 80307; 82962; 84703; 85025; 97150; 97165; 99285

== ENCOUNTER 2023-07-29 12:00 | Emergency (ER) | payer MEDICARE, MEDICAID, SELFPAY ==
[2023-07-29 12:05] VITALS: BP 145/97; PULSE 114; RESP 18; TEMP 36.7; O2SAT 97
--- NOTE | 2023-07-29 12:39 | CT_ITS ---
WS: [id number] CT HEAD TECHNIQUE: Noncontrast CT of the head obtained from the skullbase to the vertex. CLINICAL INFORMATION: jaeger COMPARISON: MRI 2008 DLP: 1020.[address] scans at [facility] use at least one of these dose optimization techniques: automated e xposure control; mA and/or kV adjustment per patient size (includes targeted exams where dose is matc hed to clinical indication); or iterative reconstruction. FINDINGS: No evidence of intracranial hemorrhage or mass effect. Ventricular system and basal cisterns are nelson nt. No extra-axial fluid collections. No evidence of mass or mass effect. Normal carrasco-white different iation. Prominent perivascular space LEFT basal ganglia. Paranasal sinuses and mastoid air cells are well aerated. .Normal visualized soft tissues. IMPRESSION: 1. No evidence of intracranial hemorrhage or mass effect. 2. No acute intracranial findings.
[2023-07-29] MEDS: LORazepam 2 mg/mL INJ 10 mL MDV 1 MG IVP (14:02)
--- NOTE | 2023-07-29 14:02 | ED_ITS ---
HPI - Headache 2 General: Chief Complaint: Headache Stated Complaint: dr sent for lumbar puncture Time Seen by Provider: 07/29/23 12:35 Source: patient Mode of arrival: ambulatory Limitations: no limitations History of Present Illness: 37-year-old female states that she had t ested positive for syphilis 2 to 3 years ago she has never had treatment she had seen the health department and had a positive VDRL she is also had headaches some blurry vision and some ataxia it has been going on for some time. The state department sent her up here for an LP to rule out neurosyphilis Associated symptoms: Deny chest pain, fever(s), nausea, rash or vomiting Review of Systems 2 Const: Denies: fever(s), chills, body aches or change in appetite Eyes: Reports: blurry vision ENMT: Denies: throat pain or dental pain Card: Denies: chest pain Resp: Denies: dyspnea GI: Denies: abdominal pain, nausea, vomiting or diarrhea : Denies: dysuria Musc: Denies: neck pain or back pain Skin/Breast: Denies: rash Neuro: Reports: headache(s) PFSH ED 2 PFSH: Medical History Intellectual disability Methamphetamine use disorder, moderate, in early remission, dependence GILDARDO (generalized anxiety disorder) Major depressive disorder, recurrent, moderate Psychiatric care Glucosuria Surgical History No pertinent past surgical history Social History Smoking and tobacco/nicotine status: never used tobacco/nicotine Alcohol intake: never Substance/Drug Use: current Substance/Drug use frequency: daily Female Reproductive History: Spontaneous abortions: No Physical Exam 2 Const: COMMON NORMALS: patient oriented x3 HENMT: COMMON NORMALS: normocephalic and atraumatic HEAD & SCALP: n ormocephalic and atraumatic Eye: COMMON NORMALS: Equal, round and reactive pupils present and EOMs intact bilaterally PUPIL: Yes Equal, round and reactive pupils present Neck/C-Spine: COMMON NORMALS: full ROM and supple Chest: COMMONS NORMALS: normal inspection of the chest and normal palpation of entire chest wall Resp: COMMON NORMALS: normal respiratory effort, No retractions, No use of accessory muscles and clear to auscultation bilaterally AUSCULTATION: clear to auscultation bilaterally Cardio: COMMON NORMALS: regular rate, regular rhythm and No murmurs present (Cardio) RATE: regular rate RHYTHM: regular rhythm GI: COMMON NORMALS: Normal to inspection, nondistended, normoactive bowel sounds present, Soft to palpation, non-tender and no masses PALPATION: Yes Soft to palpation Extremity: COMMON NORMALS: normal to inspection and full ROM Neuro: COMMON NORMALS: patient oriented x3, moves all extremities and no focal motor deficits Psych: COMMON NORMALS: mental status grossly normal, Normal thought process present and cooperative THOUGHT PROCESS: Normal thought process present Skin: COMMON NORMALS: no rashes or lesions noted and no wounds GENERAL SKIN EXAM: no rashes or lesions noted Course 2 Vital Signs: Vital signs: Vital Signs Temperature 98.1 F 07/29/23 12:05 Pulse Rate 114 H 07/29/23 12:05 Respiratory Rate 18 07/29/23 12:05 Blood Pressure 145/97 07/29/23 12:05 Pulse Oximetry 97 07/29/23 12:05 MDM - Headache Medical Decision Making Patient presents here with history of syphilis the health department center appear to rule out neurosyphilis LP showed no WBCs neurosyphilis is unlikely I did speak to lab I said to be 2 to 6 days for the CSF VDRL to come back I did give her an IM dose of Bicillin here. Spoke to my infectious control person who is to talk with the health department and informed them of the vdrl findings did inform patient if it is positive she have to come back for IV antibiotics they understand agree to plan Medical Records I reviewed the patient's medical records. Lab Data I reviewed the patient's lab results. 07/29/23 14:37 07/29/23 14:37 Laboratory Results WBC 12.49 10^3/uL (3.29-11.43) H 07/29/23 14:37 RBC 5.06 10^6/uL (3.85-5.65) 07/29/23 14:37 Hgb 14.20 g/dL (11.27-16.99) 07/29/23 14:37 Hct 44.0 % (36-47) 07/29/23 14:37 MCV 87.0 fl (85-98) 07/29/23 14:37 MCH 28.1 pg (27-33) 07/29/23 14:37 MCHC 32.3 g/dL (30-55) 07/29/23 14:37 RDW 13.5 % (12.1-15.1) 07/29/23 14:37 Plt Count 438 10^3/cmm (157-399) H 07/29/23 14:37 MPV 9.0 fL (7.4-10.4) 07/29/23 14:37 Neut % (Auto) 66.3 % 07/29/23 14:37 Lymph % (Auto) 20.9 % 07/29/23 14:37 [place] % (Auto) 9.8 % 07/29/23 14:37 Eos % (Auto) 1.4 % 07/29/23 14:37 Baso % (Auto) 1.0 % 07/29/23 14:37 Neut # (Auto) 8.29 10^3/uL (1.8-7.7) H 07/29/23 14:37 Lymph # (Auto) 2.6 10^3/uL (0.8-4.8) 07/29/23 14:37 [place] # (Auto) 1.2 10^3/uL (0.2-0.9) H 07/29/23 14:37 Eos # (Auto) 0.2 10^3/uL (0.0-0.8) 07/29/23 14:37 Baso # (Auto) 0.1 10^3/uL (0.0-0.1) 07/29/23 14:37 Nucleated RBC % (auto) 0 % 07/29/23 14:37 Nucleated RBCs # 0.0 /100WBC 07/29/23 14:37 CSF Appearance Clear (CLEAR) 07/29/23 14:20 CSF Color Colorless (COLORLESS) 07/29/23 14:20 CSF WBC 2 /uL (0-5) 07/29/23 14: CSF RBC 0 10^3/uL (0-0) 07/29/23 14:20 CSF Mononuclear # Auto 0.001 10^3/uL (50-90) L 07/29/23 14:20 CSF Mononuclear WBCs % 50 % (50-90) 07/29/23 14:20 CSF Polynuclear WBCs # 0.001 10^3/uL (0-10) 07/29/23 14:20 CSF Polynuclear WBCs % 50 % (0-10) H 07/29/23 14:20 CSF Diff Comment Yes 07/29/23 14:20 CSF Glucose 70 mg/dL (40-70) 07/29/23 14:20 CSF Total Protein 30 mg/dL (15-45) 07/29/23 14:20 All radiology interpretation(s) finalized by discharge Discharge Plan Discharge Patient Disposition: Home Clinical Impression: Headache, Positive serology for syphilis Condition: Stable Prescriptions: No Action buspirone 10 mg tablet 10 mg PO TID Qty: 90 2RF duloxetine [Cymbalta] 60 mg capsule,delayed release(DR/EC) 60 mg PO DAILY Qty: 30 1RF bupropion HCl 300 mg tablet extended release 24 hr 300 mg PO DAILY 30 Days Qty: 30 2RF hydroxyzine pamoate 50 mg capsule 50 mg PO TID PRN (Reason: Anxiety) 30 Days Qty: 90 2RF naltrexone 50 mg tablet 50 mg PO DAILY Qty: 30 2RF trazodone 50 mg tablet 50 mg PO BEDTIME PRN (Reason: Sleep) 30 Days Qty: 30 2RF albuterol sulfate [ProAir HFA] 90 mcg/actuation HFA aerosol inhaler 1 - 2 puff inhalation Q6H PRN (Reason: Shortness Of Breath) 30 Days Qty: 2.5 1RF propranolol 20 mg tablet 20 mg PO TID PRN (Reason: Blood Pressure) 30 Days Qty: 90 1RF medroxyprogesterone 150 mg/mL syringe 150 mg IM Q90D metformin 500 mg tablet 500 mg PO BEDTIME atorvastatin 10 mg tablet 10 mg PO BEDTIME omeprazole 20 mg capsule,delayed release(DR/EC) 20 mg PO DAILY ergocalciferol (vitamin D2) 1,250 mcg (50,000 unit) capsule 1,250 mcg PO Q7D Victoza 2-Paul 0.6 mg/0.1 mL (18 mg/3 mL) pen injector 1.2 mg SUBCUT DAILY Linzess 290 mcg capsule 290 mcg PO DAILY baclofen 10 mg PO TID PRN (Reason: Anxiety) ondansetron 8 mg 8 mg PO TID PRN (Reason: Nausea) Discharge Orders: Discharge ED (Routine); Ordered 07/29/23 Ordered By: Vira Leblanc Referrals: Nika Lozano DNP [Primary Care Provider] - Discharge Diet: Advance as tolerated Discharge Activity: Resume usual activity Patient Instructions: General Headache (ED), Syphilis - Female Coding Level of Care Code ED Honing Machine Operator Semiautomatic for Albert Pelletier
[2023-07-29 14:46] LABS: Cyto Order Verification No Order
[2023-07-29 14:48] LABS: Appearance CSF CLEAR (CLEAR); Color CSF COLORLESS (COLORLESS); Pathology Referral Yes
[2023-07-29 14:51] LABS: CSF Mononuclear # 0.001 10^3/uL (50-90); Mononuclear WBC CSF % 50 % (50-90); Polynuclear Cells ,CSF # 0.001 10^3/uL (0-10); Polynuclear WBC CSF % 50 % (0-10); Red Blood Cell CSF 0 10^3/uL (0-0); White Blood Cell CSF 2 /uL (0-5)
[2023-07-29 14:54] LABS: Basophils # 0.1 10^3/uL (0.0-0.1); Eosinophils # 0.2 10^3/uL (0.0-0.8); Eosinophils % 1.4 %; Lymphocytes # 2.6 10^3/uL (0.8-4.8); Lymphocytes % 20.9 %; Mean Corpuscular HGB Conc 32.3 g/dL (30-55); Mean Corpuscular Hemoglobin 28.1 pg (27-33); Monocytes # 1.2 10^3/uL (0.2-0.9); Monocytes % 9.8 %; Neutrophils # 8.29 10^3/uL (1.8-7.7); Neutrophils % 66.3 %; Nucleated Red Blood Cells % 0 %; Platelet Count 438 10^3/cmm (157-399); Red Blood Count 5.06 10^6/uL (3.85-5.65); Red Cell Distribution Width 13.5 % (12.1-15.1); White Blood Count 12.49 10^3/uL (3.29-11.43)
[2023-07-29] MEDS: penicillin g (L-A) 1,200,000 unit/2 mL Syr 2400000 UNIT IM (14:58)
[2023-07-29 15:06] LABS: Glucose CSF 70 mg/dL (40-70); Total Protein CSF 30 mg/dL (15-45)
[2023-07-29 15:14] LABS: Alanine Aminotransferase 13 U/L (0-33); Albumin Level 4.2 g/dL (3.5-5.2); Alkaline Phosphatase 132 U/L (35-105); Anion Gap 14.9 (5-19); Aspartate Amino Transferase 13 U/L (0-32); Blood Urea Nitrogen 9 mg/dL (6-20); Calcium 9.2 mg/dL (8.5-10.5); Carbon Dioxide 23 mmol/L (22-29); Chloride 106 mmol/L (98-107); Globulin 2.7 g/dL (1.3-4.6); Glomerular Filtration Rate 94.2 mL/min (90-130); Glucose 75 mg/dL (65-115); Osmolality Calculated 287 mOsm/kg (285-295); Potassium 3.9 mmol/L (3.5-5.1); Sodium 140 mmol/L (136-145); Total Bilirubin 0.2 mg/dL (0.15-1.2); Total Protein 6.9 g/dL (6.6-8.7)
[2023-08-04 00:36] LABS: VDRL on CSF NON-REACTIVE
== END 2023-07-29 15:27 | disposition home or self-care (01) ==
PROVIDERS: Emergency Provider Emergency Medicine; PCP Nurse Practitioner Family
DX: R51.9 Headache, unspecified (principal); A53.9 Syphilis, unspecified; Z79.84 Long term (current) use of oral hypoglycemic drugs
CPT/HCPCS: 62270; 70450; 80053; 80503; 82945; 84157; 85025; 86592; 87070; 87075; 87205; 89050; 96372; 96374; 99285; J0561; J2060